=== PATIENT | male | born 1965 | race Caucasian/White ===

== ENCOUNTER 2020-09-09 13:38 | Outpatient (REF) | payer OTHER, SELFPAY ==
[2020-09-09 16:30] LABS: Hematocrit 41.5 % (42-52); Hemoglobin 14.5 g/dl (14.0-18.0); Mean Corpuscular HGB Conc 34.9 g/dl (31.0-36.0); Mean Corpuscular Hemoglobin 32.7 pg (27.0-33.0); Mean Corpuscular Volume 93.7 fL (80-98); Mean Platelet Volume 8.3 fL (9.4-12.4); Platelet Count 339 X10*3/uL (160-400); Red Blood Count 4.43 X10*6/uL (4.60-5.80); Red Cell Distribution Width 11.8 % (11.0-16.0); White Blood Count 6.5 X10*3/uL (4.8-10.8)
[2020-09-09 16:35] LABS: Color Urine STRAW; Glucose Urine UA NEG (NEG); Leukocyte Esterase Urine NEG (NEG); Nitrite Urine NEG (NEG); Urine Blood 1+ (NEG); Urine Ketones NEG (NEG); Urine Protein NEG (NEG-TRACE)
[2020-09-09 16:36] LABS: Appearance Urine CLEAR
[2020-09-09 16:47] LABS: WBC Urine 0 /HPF (0-4)
[2020-09-09 17:10] LABS: Alanine Aminotransferase 12 U/L (0-40); Albumin Level 4.7 g/dL (3.5-5.0); Alkaline Phosphatase 36 U/L (39-117); Anion Gap 15 (12-20); Aspartate Amino Transferase 17 U/L (5-37); Bilirubin Total 0.5 mg/dL (0.0-1.0); Blood Urea Nitrogen 12 mg/dL (9-16); Carbon Dioxide 28 mmol/L (22-29); Chloride 96 mmol/L (96-108); Cholesterol 180 mg/dL; Estimated Glomerular Filt Rate > 60; Glucose Fasting 85 mg/dL (60-99); HDL Cholesterol 70 mg/dL; LDL Cholesterol Calculated 102 mg/dl; Potassium 4.7 mmol/l (3.3-5.1); Sodium 134 mmol/L (135-145); Total Protein 7.4 g/dL (6.5-8.0); Triglycerides 44 mg/dL
[2020-09-09 17:30] LABS: Prostate Specific Antigen Scr 0.49 ng/mL (<0.05-4.0); Thyroid Stimulating Hormone 1.12 uIU/mL (0.32-4.0)
== END 2020-09-09 13:39 | disposition home or self-care (01) ==
LOC: HO.HMGCLDS 13:38
PROVIDERS: PCP Internal Medicine; Visit Provider Internal Medicine
DX: Z00.00 Encounter for general adult medical examination without abnormal findings (principal)
CPT/HCPCS: 36415; 80053; 80061; 81001; 84153; 84443; 85027

== ENCOUNTER → 2020-10-07 09:29 | Outpatient (BNVA) | payer OTHER, SELFPAY | PROVIDERS: PCP Internal Medicine; Visit Provider Nurse Practitioner | DX: Z76.89 Persons encountering health services in other specified circumstances (principal) ==

== ENCOUNTER → 2020-10-16 11:32 | Outpatient (BNVA) | payer OTHER, SELFPAY | PROVIDERS: PCP Internal Medicine; Visit Provider Urology | DX: R31.29 Other microscopic hematuria (principal) | CPT/HCPCS: 99202 ==

== ENCOUNTER 2020-10-28 12:56 | Outpatient (REF) | payer OTHER, SELFPAY ==
[2020-10-28 14:34] LABS: Glucose Urine UA NEG (NEG); Leukocyte Esterase Urine NEG (NEG); Nitrite Urine NEG (NEG); PH 5.5 (5.0-8.0); Urine Blood 1+ (NEG); Urine Ketones NEG (NEG); Urine Protein NEG (NEG-TRACE)
[2020-10-28 14:40] LABS: Appearance Urine CLEAR; Color Urine STRAW
[2020-10-28 14:41] LABS: Urine Cytology See Pathology rpt
[2020-10-28 15:22] LABS: RBC Urine 0-2 /HPF (0); WBC Urine 0-2 /HPF (0-4)
[2020-10-28 15:23] LABS: Squamous Epithelial Cell Urine TRACE /LPF; Uric Acid Crystals Urine TRACE /LPF
== END 2020-10-28 12:57 | disposition home or self-care (01) ==
LOC: HO.LAB 12:56
PROVIDERS: PCP Internal Medicine; Visit Provider Urology
DX: R31.29 Other microscopic hematuria (principal)
CPT/HCPCS: 81001; 88112

== ENCOUNTER 2020-11-04 13:55 | Outpatient (REF) | payer OTHER, SELFPAY ==
--- NOTE | 2020-11-04 14:02 | CT_ITS ---
EXAMINATION: CT ABDOMEN AND PELVIS WITHOUT AND WITH CONTRAST CLINICAL INFORMATION: Gross hematuria COMPARISON: Previous abdominal ultrasound July 2019 TECHNIQUE: Noncontrast CT of the abdomen and pelvis is performed followed by split bolus contrast-enhanced images using 85 mL Omnipaque 350 contrast.? Postcontrast imaging is performed during the combined nephrogram and excretion phase. Sagittal and coronal reformatted images were obtained on the technologist's workstation for both the precontrast and postcontrast phases. This CT examination was performed using dose optimization techniques as appropriate, variously including the following: *Automated exposure control *Adjustment of mA and/or kV according to patient size (this includes techniques or standardized protocols for targeted exams where dose is matched to indication/reason for exam; i.e. extremities or head) *Use of iterative reconstruction technique DLP: 368 mGy-cm FINDINGS: LUNG BASES: The visualized lung bases are unremarkable. LIVER, GALLBLADDER, AND BILIARY TREE: The liver is normal in size, shape, and attenuation. No focal hepatic lesion or biliary ductal dilatation is present. The gallbladder is unremarkable with no evidence of radiopaque gallstones, gallbladder wall thickening, or obvious pericholecystic inflammatory changes. PANCREAS: The main pancreatic duct is slightly prominent measuring 4 mm in the head of the pancreas. This is similar to previous ultrasound. The pancreas is otherwise normal appearing. No mass is seen. SPLEEN: Unremarkable. ADRENAL GLANDS: Unremarkable. KIDNEYS AND URETERS: The kidneys are normal in size, shape, and attenuation. No hydronephrosis, hydroureter, or calculi seen. There are 2 adjacent small cysts exophytic to the upper pole of the left kidney each measuring 5 mm. The collecting systems are normal. The right ureter is well-opacified with excreted contrast. The course of the right proximal ureter UPJ region is tortuous. The left ureter is not optimally opacified with excreted contrast. BLADDER: Unremarkable. GASTROINTESTINAL TRACT: There is stool throughout the colon questionable for constipation. The small and large bowel are otherwise unremarkable. The appendix is unremarkable. ABDOMINAL WALL: There is a small umbilical hernia containing fat. LYMPH NODES: Normal. VASCULAR: There is evidence of atherosclerotic disease. PELVIC VISCERA: Unremarkable. OSSEUS STRUCTURES: There is curvature of the mid lumbar spine to the right. There are degenerative changes at the hip joints. CT/CT urogram IMPRESSION: No cause of hematuria seen. The right proximal ureter at the UPJ region appears tortuous. The left ureter is not optimally opacified with excreted contrast. The bladder is normal. There are 2 small left renal cysts. There is mild dilatation of the main pancreatic duct in the head of the pancreas similar to previous ultrasound.
[2020-11-04 14:44] LABS: Blood Urea Nitrogen 16 mg/dL (9-16); Estimated Glomerular Filt Rate > 60
[2020-11-04] MEDS: iohexoL 350 MG/ML 100 ML INFUS..BTL IV (15:56)
== END 2020-11-04 13:56 | disposition home or self-care (01) ==
LOC: HO.CT 13:55
PROVIDERS: Visit Provider Urology
DX: R31.0 Gross hematuria (principal); R31.29 Other microscopic hematuria
CPT/HCPCS: 36415; 74178; 82565; 84520; Q9967

== ENCOUNTER → 2020-11-07 10:54 | Outpatient (BNVA) | payer OTHER, SELFPAY | PROVIDERS: PCP Internal Medicine; Visit Provider Urology ==

== ENCOUNTER 2020-12-05 10:12 | Outpatient (REF) | payer OTHER, SELFPAY ==
[2020-12-06 13:42] LABS: Urine Cytology See Pathology rpt
== END 2020-12-05 10:13 | disposition home or self-care (01) ==
LOC: CF 10:12
PROVIDERS: PCP Internal Medicine; Visit Provider Urology
DX: N40.1 Benign prostatic hyperplasia with lower urinary tract symptoms (principal); N13.8 Other obstructive and reflux uropathy; R39.11 Hesitancy of micturition; R31.29 Other microscopic hematuria; Z79.899 Other long term (current) drug therapy
CPT/HCPCS: 81002; 88112; 99212

== ENCOUNTER → 2021-04-07 08:55 | Outpatient (BNVA) | payer OTHER, SELFPAY | PROVIDERS: PCP Internal Medicine; Visit Provider Nurse Practitioner ==

== ENCOUNTER → 2021-10-27 16:00 | Outpatient (BNVA) | payer OTHER, SELFPAY | PROVIDERS: PCP Internal Medicine; Referring Provider Internal Medicine; Visit Provider Nurse Practitioner | DX: Z12.11 Encounter for screening for malignant neoplasm of colon (principal); K59.09 Other constipation; Z80.0 Family history of malignant neoplasm of digestive organs | CPT/HCPCS: 99212 ==

== ENCOUNTER 2022-01-06 09:48 | Day surgery (SDC) | payer OTHER, SELFPAY ==
[2022-01-01 19:58] VITALS: BMI 19.2
--- NOTE | 2022-01-05 12:07 | P.CONAN_ITS ---
Documented by User: Ana Penn NP 01/05/22 12:09 HPI - Anesthesia Eval Consult details Narrative: 56yo M for Colonoscopy Methadone daily, hx of opioid use disorder PMFSH Active Problems Active Problems: All Active Problems (Updated 01/01/22 @ 19:57 by Judy Jeter, RN) Colon cancer screening (Acute) Upper respiratory infection (Acute) BPH w urinary obs/LUTS (Acute) Urinary hesitancy due to benign prostatic hyperplasia (Acute) Family history of colon cancer (Acute) Dysplastic nevus (Acute) Weight loss (Acute) Back pain (Acute) Chronic anxiety (Acute) Microscopic hematuria (Acute) Chronic constipation (Acute) Annual physical exam (Acute) Past Medical History Medical History Annual physical exam Back pain Chronic anxiety Chronic constipation Dysplastic nevus Microscopic hematuria Opiate abuse, continuous Smoker Weight loss Family History Family History Father Rectal cancer Mother No problems noted. Surgical History Surgical History History of adenoidectomy Hx of colonoscopy Social History Social History Housing: House Alcohol intake: current Alcohol intake frequency: a few times a week Patient Tobacco Use Status: Current everyday Tobacco user Tobacco use type: Cigarette Cigarette Packs Per Day: 0.5 Cigarettes Per Day: 10.0 Years Smoked: 30 Smoked in Last 30 Days: Yes e-Cigarette/Vaping Use: Former Use Use of substances other than those prescribed or required for medical reasons: No Substance Use Type Other:: REMISSION 7 YEARS-METHADONE PROGRAM Are you DNR?: No Advance Directives: No Advance Directives Information Provided: No Advance Directives on File: No Recently lost weight without trying: No Nutrition Risks: No Nutritional Risk Current occupational status: employed Meds Allergies Allergy/AdvReac Type Severity Reaction Status Date / Time No Known Allergies Allergy Verified 10/27/21 16:30 Home Medications Medication Instructions Recorded Confirmed Last Taken Type methadone 5 mg tablet 5 mg PO DAILY 10/27/21 01/01/22 01/06/22 History bisacodyl 5 mg tablet,delayed 1 mg PO BEDTIME 01/01/22 01/01/22 Unknown History release Exam Exam Date and Time: January 05, 2022 1207 Height,Weight and Vital Signs: Height 5 ft 9 in Weight 58.967 kg Pertinent Lab Results Pertinent Lab Results: Laboratory Tests 11/04/20 14:10 BUN 16 Creatinine 0.75 Assessment and Plan Assessment Anesthesia Assessment: Chart Reviewed Documented by User: Caridad Maher MD 01/06/22 10:33 [facility] Past Medical History Medical History Annual physical exam Back pain Chronic anxiety Chronic constipation Dysplastic nevus Microscopic hematuria Opiate abuse, continuous Smoker Weight loss Functional capacity: independent ambulation Family History Family History Father Rectal cancer Mother No problems noted. Family history of problems with anesthesia: No Surgical History Surgical History History of adenoidectomy Hx of colonoscopy History of Problems with Anesthesia: No Social History Social History Housing: House Alcohol intake: current Alcohol intake frequency: a few times a week Patient Tobacco Use Status: Current everyday Tobacco user Tobacco use type: Cigarette Cigarette Packs Per Day: 0.5 Cigarettes Per Day: 10.0 Years Smoked: 30 Smoked in Last 30 Days: Yes e-Cigarette/Vaping Use: Former Use Use of substances other than those prescribed or required for medical reasons: No Substance Use Type Other:: REMISSION 7 YEARS-METHADONE PROGRAM Are you DNR?: No Advance Directives: No Advance Directives Information Provided: No Advance Directives on File: No Recently lost weight without trying: No Nutrition Risks: No Nutritional Risk Current occupational status: employed Meds Allergies Allergy/AdvReac Type Severity Reaction Status Date / Time No Known Allergies Allergy Verified 10/27/21 16:30 Home Medications Medication Instructions Recorded Confirmed Last Taken Type methadone 5 mg tablet 5 mg PO DAILY 10/27/21 01/01/22 01/06/22 History bisacodyl 5 mg tablet,delayed 1 mg PO BEDTIME 01/01/22 01/01/22 Unknown History release Exam Airway Mallampati Class: II TM Dist: >3cm Neck ROM: Full Heart: RRR Lungs: CTA Assessment and Plan Final Anesthetic Review Family History of Problems with Anesthesia: No History of Problems with Anesthesia: No NPO: Yes ASA Class: II Final Preanesthetic Review: No Changes in Pt Med Stat, Meds/Allgs Chart Reviewed, Consent Obtained/Reviewed and Anes Risks/Benef Reviewed Patient Risk: Low Procedure Risk: Low
[2022-01-06 10:01] VITALS: BP 151/83; PULSE 80; RESP 18; TEMP 36.3; O2SAT 99
--- NOTE | 2022-01-06 10:09 | MHC.SHP ---
Pre-Procedural Eval Section A Date of Service: 01/06/22 Section B Chief Complaint: Screening Details of Present Illness: FH of CRC Relevant Family History (Specify if Yes): Yes Relevant Social History: Tobacco Use Present Medications: see Short Stay Collaborative assessment Medical History: Significant History (Back pain Chronic anxiety Chronic constipation Dysplastic nevus Microscopic hematuria Opiate abuse, continuous Smoker Weight loss) History of Previous Operations: Relevant previous surgery/procedure and date(s) (History of adenoidectomy Hx of colonoscopy) Allergies: Allergies Allergy/AdvReac Type Severity Reaction Status Date / Time No Known Allergies Allergy Verified 10/27/21 16:30 Review of Systems Sugical H&P ROS: Negative: Constitution, Cardiovascular, Respiratory, Neurological, Psychiatric, Hem-Onc, Allergic/Immunologic, Gastrointestinal, Genitourinary, Musculoskeletal, Integumentary, Endocrine and Eyes/Ears/Nose/Throat Exam Surgical H&P Exam: Normal: HEENT, Normal: Heart, Normal: Lungs, Normal: Extremities, Normal: Abdomen, Normal: Skin and Normal: Neurological Plan Diagnosis/Plan: Unchanged I have reviewed the history and physical and performed a pertinent physical examination on my patient. No changes have occurred unless specified.
--- NOTE | 2022-01-06 10:10 | PM.OP ---
Brief Operative Note Date of Service: 01/06/22 Pre-op diagnosis: FH of CRC in father -rectal Post-op diagnosis: same Procedure: see op note Surgeon: Dennis Garrido MD Anesthesia: MAC Was an Transportation Department Supervisor used for this Procedure?: No Estimated blood loss (mL): 0 Condition: stable Disposition: PACU
--- NOTE | 2022-01-06 10:11 | W.PM.OPN ---
Operative Note Operative Note Date of Service: 01/06/22 Narrative: Operative Information Procedure Description: Colonoscopy COLONOSCOPY Instrument: Olympus variable stiffness pediatric scope 190L Colonoscopy Monitoring: Vital signs and clinical assessment, continuous EKG monitoring, Pulse oximetry, Carbon Dioxide monitoring and blood pressure monitoring were done throughout the procedure. Colon withdrawal time was 7 minutes. Procedure: The patient was placed in the left lateral decubitis position and pre-procedure medications were administered. After a digital rectal examination of the ano-rectum, the video colonoscope was inserted into the rectum and advanced through the colon to the cecum/TI. The colonoscope was slowly withdrawn in a retrograde panoramic fashion and the colon mucosa was carefully examined including a retroflexed view of the rectum. Findings and interventions are described below. Procedure Difficulty: easy Findings: Terminal Ileum-normal Right sided retroflexion was normal Cecum:normal Ascending Colon: few small diverticula see Transverse Colon -normal Descending Colon:normal Sigmoid Colon: few small diverticula seen, x 1 sessile polyp 6-7 mm removed with forceps Rectum: Retroflexion with small internal hemorrhoids, grade I with skin tags, 6-8 mm sessile polyp removed with forceps Anorectum - normal Colon preparation: [place] Bowel Preparation Scale Right colon; 2 Transverse colon: 2 Left colon; 2 (0 = Unprepared colon segment with mucosa not seen due to solid stool that cannot be cleared. 1 = Portion of mucosa of the colon segment seen, but other areas of the colon segment not well seen due to staining, residual stool and/or opaque liquid. 2 = Minor amount of residual staining, small fragments of stool and/or opaque liquid, but mucosa of colon segment seen well. 3 = Entire mucosa of colon segment seen well with no residual staining, small fragments of stool or opaque liquid) Impression and Post Procedure Diagnosis: .triple Plan: High fiber diet leaflet Avoid straining at stool, epsom salts and sitz bath, anusol supps or cream Repeat Colonoscopy in 5 years due to FH of CRC or earlier if clinically indicated Above findings were reviewed with the patient and relevant handouts were provided if indicated.
[2022-01-06] MEDS: Lactated Ringers 1,000 ML 100 ML IVCONT (10:29)
[2022-01-06 11:30] VITALS: BP 120/71; PULSE 69; RESP 16; TEMP 36.2; O2SAT 98
[2022-01-06 11:44] VITALS: BP 130/74; PULSE 63; RESP 18; TEMP 36.7; O2SAT 98
--- NOTE | 2022-01-06 15:12 | HO.POSTANES ---
Post Anesthesia Evaluation Post Anesthesia Evaluation Vital Signs: Vital Signs Temp Pulse Resp BP Pulse Ox 01/06/22 11:44 98.1 F 63 18 130/74 98 01/06/22 11:30 97.2 F 69 16 120/71 98 01/06/22 10:01 97.3 F 80 18 151/83 H 99 Anesthesia: Monitored Mental Status: Awake Pain Control: Satisfactory Nausea/Vomiting: None Hydration: Adequate Anesthesia-Related Issues: No Anes. Related Issues
== END 2022-01-06 12:35 | disposition home or self-care (01) ==
PROVIDERS: PCP Internal Medicine; Visit Provider Internal Medicine Gastroenterology
PROC: 0DJD8ZZ Inspection of Lower Intestinal Tract, Via Natural or Artificial Opening Endoscopic (ICD-10-PCS; CPT 45378; principal; 2022-01-06 11:10)
DX: Z12.11 Encounter for screening for malignant neoplasm of colon (principal); Z80.0 Family history of malignant neoplasm of digestive organs; D12.5 Benign neoplasm of sigmoid colon; K62.1 Rectal polyp; K57.30 Diverticulosis of large intestine without perforation or abscess without bleeding; K64.0 First degree hemorrhoids; K64.4 Residual hemorrhoidal skin tags; K59.09 Other constipation; F41.9 Anxiety disorder, unspecified; R63.4 Abnormal weight loss; Z68.1 Body mass index [BMI] 19.9 or less, adult; F11.10 Opioid abuse, uncomplicated; Z79.899 Other long term (current) drug therapy; F17.210 Nicotine dependence, cigarettes, uncomplicated
CPT/HCPCS: 45380; 88305

== ENCOUNTER 2022-02-17 08:25 | Outpatient (REF) | payer OTHER, SELFPAY ==
[2022-02-17 11:50] LABS: Hemoglobin 15.9 g/dl (14.0-18.0); Mean Corpuscular HGB Conc 33.8 g/dl (31.0-36.0); Mean Corpuscular Hemoglobin 31.3 pg (27.0-33.0); Mean Corpuscular Volume 92.5 fL (80.0-98.0); Mean Platelet Volume 8.4 fL (9.4-12.4); Platelet Count 370 X10*3/uL (160-400); Red Blood Count 5.08 X10*6/uL (4.60-5.80); Red Cell Distribution Width 12.2 % (11.0-16.0); White Blood Count 4.4 X10*3/uL (4.8-10.8)
[2022-02-17 12:07] LABS: Alanine Aminotransferase 13 U/L (0-40); Albumin Level 4.4 g/dL (3.5-5.0); Alkaline Phosphatase 40 U/L (39-117); Anion Gap 13 (12-20); Aspartate Amino Transferase 17 U/L (5-37); Bilirubin Total 0.7 mg/dL (0.0-1.0); Blood Urea Nitrogen 14 mg/dL (9-16); Calcium 9.6 mg/dL (8.4-10.2); Carbon Dioxide 27 mmol/L (22-29); Chloride 103 mmol/L (96-108); Cholesterol 180 mg/dL; Estimated Glomerular Filt Rate > 60; Glucose Fasting 92 mg/dL (60-99); HDL Cholesterol 65 mg/dL; LDL Cholesterol Calculated 107 mg/dl; Potassium 4.6 mmol/L (3.3-5.1); Sodium 138 mmol/L (135-145); Total Protein 7.3 g/dL (6.5-8.0); Triglycerides 41 mg/dL
[2022-02-17 12:14] LABS: Prostate Specific Antigen Scr 0.85 ng/mL (<0.05-4.0)
[2022-02-17 12:21] LABS: Appearance Urine CLEAR; Color Urine YELLOW; Glucose Urine UA NEG (NEG); Leukocyte Esterase Urine NEG (NEG); Nitrite Urine NEG (NEG); Urine Blood TRACE (NEG); Urine Ketones NEG (NEG); Urine Protein NEG (NEG-TRACE)
[2022-02-17 13:13] LABS: RBC Urine 0-2 /HPF (0); WBC Urine 0 /HPF (0-4)
== END 2022-02-17 08:26 | disposition home or self-care (01) ==
LOC: HO.HMGCLDS 08:25
PROVIDERS: Visit Provider Internal Medicine
DX: Z00.00 Encounter for general adult medical examination without abnormal findings (principal); Z12.5 Encounter for screening for malignant neoplasm of prostate
CPT/HCPCS: 36415; 80053; 80061; 81001; 84153; 85027

== ENCOUNTER 2023-06-10 10:35 | Outpatient (AMB) | payer OTHER, SELFPAY ==
--- NOTE | 2023-06-10 10:47 | MHC.PC.OV ---
Vital Signs 06/10/23 10:48 Height 5 ft 9 in Weight 144 lb BMI 21.3 BP 125/80 Blood Pressure Location Lt brachial Position Sitting Pulse 77 Pulse Source Pulse Oximeter Pulse Oximetry (%) 96 Oxygen Delivery Method Room Air Intake Visit Reasons: Medication Follow Up Intake Note: Pt is here today for PE. Allergies No Known Allergies Allergy (Verified 06/10/23 10:51) Medication List - Last Reconciled 06/10/23 by Jazmin Chavez MD finasteride 1 mg PO DAILY minoxidil 1.25 mg PO DAILY trazodone 100 mg PO BEDTIME Tobacco use date assessed: 06/10/23 Dental Screening Dental Screen Date: 06/10/23 Did you have a dental visit in the last 12 months?: Yes Did you have a dental problem in the last 6 months where you did not have access to dental care?: No Was dental information given to patient?: Patient has dentist HPI HPI Comments History of Present Illness Details Pt presents for PE [facility] Medical History Annual physical exam Back pain Chronic anxiety Chronic constipation Dysplastic nevus Microscopic hematuria Opiate abuse, continuous Smoker Weight loss Surgical History History of adenoidectomy Hx of colonoscopy Family History Father Rectal cancer Mother No problems noted. Social History Housing: House Alcohol intake: current Alcohol intake frequency: a few times a week Patient Tobacco Use Status: Current everyday Tobacco user Tobacco use type: Cigarette Cigarette Packs Per Day: 0.5 Cigarettes Per Day: 8 Years Smoked: 30 e-Cigarette/Vaping Use: Former Use Current occupational status: employed Cognitive needs: No Hearing needs: No Vision needs: Yes Questionnaire PHQ-9 Over the last 2 weeks, how often have you been bothered by any of the following problems? 1. Little interest or pleasure in doing things: not at all 2. Feeling down, depressed, or hopeless: not at all 3. Trouble falling or staying asleep, or sleeping too much: not at all 4. Feeling tired or having little energy: not at all 5. Poor appetite or overeating: not at all 6. Feeling bad about yourself - or that you are a failure or have let yourself or your family down: not at all 7. Trouble concentrating on things, such as reading the newspaper or watching television: not at all 8. Moving or speaking so slowly that other people could have noticed. Or the opposite - being so fidgety or restless that you have been moving around a lot more than usual: not at all 9. Thoughts that you would be better off or of hurting yourself in some way: not at all Total score: 0 Depression Screening Interpretation: Negative Source: Developed by Drs. Volodymyr Meléndez, Pamella Weiss, Demario Kraft and colleagues, with an educational manuel from [employer] website. Thrive Questionnaire Date Thrive assessed: 06/10/23 I am a: Patient What is your living situation today?: I have a steady place to live Within the past 12 months, did the food you bought not last and you didn't have the money to get more?: Never true Within the past 12 months, did you worry whether your food would run out before you got money to buy more?: Never true Do you have trouble paying for medicines?: No Do you have trouble getting transportation to medical appointments?: No Do you have trouble paying your heating and electricity bill?: No Do you have trouble taking care of your child, family member or friend?: No Do you have trouble with day-to-day activities such as bathing, preparing meals, shopping, managing finances, etc.?: No Are you currently unemployed and looking for a job?: No Are you interested in more education?: No Please select the resources that you would like help with: None Currently or been in a relationship where the following occur: no concerns reported AUDIT C Alcohol Use Questionnaire (AUDIT-C) 1. How often do you have a drink containing alcohol?: Monthly or less 2. How many drinks containing alcohol do you have on a typical day when you are drinking?: 1 or 2 3. How often do you have six or more drinks on one occasion?: Never Total Score: 1 YOLETTE-7 AMB Questionnaire YOLETTE-7 Date YOLETTE - 7 assessed: 06/10/23 Feeling nervous, anxious, or on edge: 0 = Not at all Not being able to stop or control worryin = Not at all Worrying too much about different things: 0 = Not at all Trouble relaxin = Not at all Being so restless that it is hard to sit still: 0 = Not at all Becoming easily annoyed or irritable: 0 = Not at all Feeling afraid as if something awful might happen: 0 = Not at all Total YOLETTE-7 score (0-4 normal; 5-9 mild; 10-14 moderate; 15-21 severe): 0 Source: Developed by Drs. Volodymyr Meléndez, Pamella Weiss, Demario Kraft and colleagues, with an educational manuel from [employer] website. Review of Systems Const All systems reviewed & are unremarkable except as noted in HPI and below Reports no additional complaints Eyes Reports no additional complaints ENT Reports no additional complaints Card Reports no additional complaints Resp Reports no additional complaints GI Reports no additional complaints Reports no additional complaints Physical exam (Primary Care) Vital Signs: Last Vital Signs Pulse 77 06/10/23 10:48 BP 138/94 H 06/10/23 10:48 Pulse Ox 96 06/10/23 10:48 Oxygen Delivery Method Room Air 06/10/23 10:48 BMI result Body Mass Index 21.3 Tobacco/Smoking Status: Tobacco use Status Tobacco use date assessed 06/10/23 06/10/23 10:56 Patient Tobacco Use Status Current everyday Tobacco 06/10/23 10:50 Tobacco use type Cigarette 06/10/23 10:50 e-Cigarette/Vaping Use Former Use 06/10/23 10:50 PHQ-9: PHQ-9 Score PHQ-9: Total score 0 06/10/23 10:56 Depression Screening Interpretation: Negative Thrive Assessment: Date of Thrive Assessment Date Thrive assessed 06/10/23 06/10/23 10:56 Currently or been in a relationship where the following occur: no concerns reported Const General: no acute distress HENMT Head: Yes normal to inspection Ears: hearing grossly normal bilaterally Throat: Yes posterior oropharynx normal Eyes General: appearance normal, both eyes and all related structures Neck Neck: Yes no lymphadenopathy and Yes supple Resp Effort & Inspection: normal respiratory effort Auscultation: clear to auscultation bilaterally Cardio Rhythm: regular rhythm Heart sounds: S1 normal heart sound present and S2 normal heart sound present GI Other: Reducible umbilical hernia Inspection: Yes normal to inspection Palpation (GI): Soft to palpation Percussion: Yes normal to percussion Auscultation: normal bowel sounds Assessment and Plan Assessment & Plan (1) Umbilical hernia: Code(s): K42.9 - Umbilical hernia without obstruction or gangrene Plan: Referred to general surgery (2) Colon cancer screening: Comment: colonoscopy 2021 polyps, recheck in 5 yrs Code(s): Z12.11 - Encounter for screening for malignant neoplasm of colon (3) Heart murmur: Code(s): R01.1 - Cardiac murmur, unspecified Plan: Obtain echocardiogram (4) Annual physical exam: Code(s): Z00.00 - Encounter for general adult medical examination without abnormal findings Plan: Well-balanced diet and regular exercise discussed with the patient , he will have a fasting blood work today (5) Smoker: Comment: 1 ppd x 25 yrs Code(s): F17.200 - Nicotine dependence, unspecified, uncomplicated Plan: Tobacco quitting discussed with the patient he will be referred for lung cancer screening program Orders: Orders Comprehensive [place]. Panel Fast Today Z12.11 - Encounter for screening for malignant neoplasm of colon Complete Blood Count Auto Diff Today Z12.11 - Encounter for screening for malignant neoplasm of colon Lipid Panel Today Z12.11 - Encounter for screening for malignant neoplasm of colon PSA,Total (Free>4and<10) Today Z12.11 - Encounter for screening for malignant neoplasm of colon CA echo transthoracic complete Today R01.1 - Cardiac murmur, unspecified, Z00.00 - Encounter for general adult medical examination without abnormal findings UA w Microscopic Today Z00.00 - Encounter for general adult medical examination without abnormal findings Referrals General Surgery Referral K42.9 - Umbilical hernia without obstruction or gangrene, Z12.11 - Encounter for screening for malignant neoplasm of colon Thoracic Surgery Referral F17.200 - Nicotine dependence, unspecified, uncomplicated Medications: Refilled trazodone 100 mg PO BEDTIME 90 tabs 3RF Coding Level of Care Code Est Pt Prev Care 40-64y(61171) Diagnoses Umbilical hernia K42.9 Colon cancer screening Z12.11 Heart murmur R01.1 Annual physical exam Z00.00 Smoker F17.200
[2023-06-10 10:48] VITALS: BP 125/80; PULSE 77; O2SAT 96; BMI 21.3
== END 2023-06-10 11:41 | disposition home or self-care (01) ==
PROVIDERS: PCP Internal Medicine; Visit Provider Internal Medicine
DX: Z00.00 Encounter for general adult medical examination without abnormal findings (principal); K42.9 Umbilical hernia without obstruction or gangrene; F17.210 Nicotine dependence, cigarettes, uncomplicated; Z12.11 Encounter for screening for malignant neoplasm of colon; R01.1 Cardiac murmur, unspecified
CPT/HCPCS: 99396

== ENCOUNTER 2023-06-10 11:35 | Outpatient (REF) | payer OTHER, SELFPAY ==
[2023-06-10 13:18] LABS: MANUAL DIFF FLAG NO
[2023-06-10 13:50] LABS: Basophils Percent Auto 0.7 % (0-2); Eosinophils Absolute Auto 0.1 X10*3/uL (0.0-0.4); Eosinophils Percent Auto 1.5 % (0-4); Hemoglobin 15.4 g/dl (14.0-18.0); Imm Gran Abs Auto 0.01 X10*3/uL (0.00-0.03); Imm Gran Pct Auto 0.2 % (0.0-0.4); Lymphocytes Absolute Auto 1.6 X10*3/uL (1.2-4.9); Lymphocytes Percent Auto 28.9 % (20-40); Mean Corpuscular HGB Conc 34.2 g/dl (31.0-36.0); Mean Corpuscular Hemoglobin 31.4 pg (27.0-33.0); Mean Corpuscular Volume 91.8 fL (80.0-98.0); Mean Platelet Volume 8.6 fL (9.4-12.4); Monocytes Absolute Auto 0.4 X10*3/uL (0.1-1.2); Neutrophils Absolute Auto 3.3 x10*3/uL (2.0-8.3); Neutrophils Percent Auto 60.7 % (45-73); Platelet Count 357 X10*3/uL (160-400); Red Cell Distribution Width 12.6 % (11.0-16.0); White Blood Count 5.4 X10*3/uL (4.8-10.8)
[2023-06-10 14:04] LABS: Appearance Urine Clear; Color Urine Yellow; Glucose Urine UA Negative (Negative); Leukocyte Esterase Urine Negative (Negative); Nitrite Urine Negative (Negative); Specific Gravity - Urine 1.025 (1.005-1.025); Urine Blood Negative (Negative); Urine Ketones Negative (Negative); Urine Protein Negative (Neg-Trace)
[2023-06-10 14:13] LABS: Alanine Aminotransferase 14 U/L (0-40); Albumin Level 4.4 g/dL (3.5-5.0); Alkaline Phosphatase 41 U/L (39-117); Anion Gap 10 (12-20); Aspartate Amino Transferase 14 U/L (5-37); Bilirubin Total 0.7 mg/dL (0.0-1.0); Blood Urea Nitrogen 17 mg/dL (9-16); Calcium 9.4 mg/dL (8.4-10.2); Carbon Dioxide 27 mmol/L (22-29); Chloride 107 mmol/L (96-108); Cholesterol 168 mg/dL (<200); Estimated Glomerular Filt Rate > 60; Glucose Fasting 96 mg/dL (60-99); HDL Cholesterol 58 mg/dL (>40); LDL Cholesterol Calculated 100 mg/dL (<100); Potassium 4.1 mmol/L (3.3-5.1); Sodium 140 mmol/L (135-145); Total Protein 7.3 g/dL (6.5-8.0); Triglycerides 54 mg/dL (<150)
[2023-06-10 14:26] LABS: Bacteria Urine None Seen (None Seen); Hyaline Casts Urine 0-2 /LPF (0-2); Squamous Epithelial Cell Urine 0-2 /HPF (0-2); WBC Urine 0-5 /HPF (0-5)
[2023-06-10 17:10] LABS: PSA,Total (Free>4and<10) 0.49 ng/mL (0.00-4.00)
== END 2023-06-10 11:36 | disposition home or self-care (01) ==
LOC: HO.HMGCLDS 11:35
PROVIDERS: PCP Internal Medicine; Visit Provider Internal Medicine
DX: Z00.00 Encounter for general adult medical examination without abnormal findings (principal); Z12.11 Encounter for screening for malignant neoplasm of colon; R01.1 Cardiac murmur, unspecified
CPT/HCPCS: 36415; 80053; 80061; 81001; 84153; 85025

== ENCOUNTER 2023-06-14 10:04 | Outpatient (AMB) | payer OTHER, SELFPAY ==
--- NOTE | 2023-06-14 10:06 | A.OFFVIS_ITS ---
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 He is currently smoking about a half a pack a day and notes that he has had an umbilical hernia present for at least 10 years. He denies any prior attempts at repair but does note that it is symptomatic with exertion and he is interested in discussing repair. He denies prior intra-abdominal operations and notes that his weight is currently stable. He denies signs or symptoms of incarceration, strangulation, obstruction, urinary issues or changing bowel habits. He does note that he is having as screening CT regarding his history of smoking. He does express an interest in nicotine cessation given the long-term affects on his health and notes that he typically can quit smoking for at least a week at a time. [facility] Medical History (Updated 06/14/23 @ 10:12 by Denver Baldwin MD) Annual physical exam Back pain Chronic anxiety Chronic constipation Dysplastic nevus Microscopic hematuria Opiate abuse, continuous Smoker Weight loss Surgical History History of adenoidectomy Hx of colonoscopy Family History Father Rectal cancer Mother No problems noted. Social History Housing: House Alcohol intake: current Alcohol intake frequency: a few times a week Patient Tobacco Use Status: Current everyday Tobacco user Tobacco use type: Cigarette Cigarette Packs Per Day: 0.5 Cigarettes Per Day: 8 Years Smoked: 30 e-Cigarette/Vaping Use: Former Use Current occupational status: employed Cognitive needs: No Hearing needs: No Vision needs: Yes Review of Systems Const All systems reviewed & are unremarkable except as noted in HPI and below Reports as per HPI Physical Exam Vital Signs: Last Vital Signs Pulse 104 H 06/14/23 10:10 BP 140/87 H 06/14/23 10:10 Pulse Ox 99 06/14/23 10:10 The patient is non-toxic & in good spirits NC/AT, PERRLA, EOMI Mood, affect & judgment all appear appropriate Sclera anicteric conjunctiva pink and moist Oropharynx is clear with no aphthous ulcers, Mallampati class 4, mucous membranes moist Neck is supple with no masses, adenopathy or bruits Heart is regular, normal S1-S2 no rubs or murmurs Lungs are clear and equal anteriorly with no audible wheezing, rubs or dullness to percussion Abdomen is lean with a tender but reducible umbilical hernia with no trophic skin changes. Palpable fascial defect is approximately 2 cm. No HSM, rebound, rigidity, guarding, masses or bruits are present. Rectal exam is deferred Skin has good turgor and is free of rashes Extremities free of cyanosis clubbing edema Results Reviewed Results Reviewed: 06/10/23 Hb 15.4, Plts 357, wbc 5.4 Assessment & Plan Assessment & Plan (1) Smoker: Comment: 1 ppd x 25 yrs Code(s): F17.200 - Nicotine dependence, unspecified, uncomplicated (2) Umbilical hernia: Code(s): K42.9 - Umbilical hernia without obstruction or gangrene (3) Opiate abuse, continuous: Comment: never IVDA, clean for 7 years, in Methadone program Code(s): F11.10 - Opioid abuse, uncomplicated Plan The patient reports that he is having symptoms from his hernia and it is reasonable to consider repair. Given his lean habitus, open repair with primary closure or possible mesh repair was discussed. The importance of nicotine cessation to minimize infectious and pain complications was also discussed. Patient would like to return in a month to be re-evaluated. Signs and symptoms of incarceration, strangulation and obstruction were reviewed. Patient will contact me with any questions and if he is having more symptoms. Activity res trictions postoperatively were also reviewed and apparently understood. The importance of discussion with his therapist since perioperative opiates may be required which could cause cravings and increase his risk of relapse was discussed. The option of a laparoscopic repair, 2nd opinion and continued observation given the chronicity of this was also discussed. The risk of mesh complications was also reviewed. Patient seemed to have his questions answered and would like to return in 1 month. I have ordered a pre-albumin and nicotine urine test as well as urinary opiates. The patient is congratulated on his reporting that he is currently methadone and drug-free and desires to be nicotine free at this time. Orders: Orders Prealbumin Today F11.10 - Opioid abuse, uncomplicated, F17.200 - Nicotine dependence, unspecified, uncomplicated, K42.9 - Umbilical hernia without obstruction or gangrene Nicotine and Metabolite Ur, Qt Today F11.10 - Opioid abuse, uncomplicated, F17.200 - Nicotine dependence, unspecified, uncomplicated, K42.9 - Umbilical hernia without obstruction or gangrene Drug Screen Urine Today F11.10 - Opioid abuse, uncomplicated, F17.200 - Nicotine dependence, unspecified, uncomplicated, K42.9 - Umbilical hernia without obstruction or gangrene Coding Level of Care Code New Pt Level 4 (66691) Diagnoses Smoker F17.200 Umbilical hernia K42.9 Opiate abuse, continuous F11.10
[2023-06-14 10:10] VITALS: BP 140/87; PULSE 104; O2SAT 99; BMI 21.9
== END 2023-06-14 10:40 | disposition home or self-care (01) ==
PROVIDERS: PCP Internal Medicine; Visit Provider Surgery
DX: F17.200 Nicotine dependence, unspecified, uncomplicated (principal); K42.9 Umbilical hernia without obstruction or gangrene; F11.10 Opioid abuse, uncomplicated
CPT/HCPCS: 99204

== ENCOUNTER → 2023-06-14 10:04 | Outpatient (BNVA) | payer OTHER, SELFPAY | PROVIDERS: PCP Internal Medicine; Visit Provider Surgery | DX: K42.9 Umbilical hernia without obstruction or gangrene (principal); F11.20 Opioid dependence, uncomplicated; F17.210 Nicotine dependence, cigarettes, uncomplicated | CPT/HCPCS: 99202 ==

== ENCOUNTER 2023-07-12 11:47 | Outpatient (REF) | payer OTHER, SELFPAY ==
[2023-07-12 14:14] LABS: Amphetamine Screen Urine Not Detected (Not Detect); Barbiturates, Urine Not Detected (Not Detect); Benzodiazepines Screen Urine Not Detected (Not Detect); Cannabinoid Screen Urine Not Detected (Not Detect); Cocaine Screen Urine Not Detected (Not Detect); Fentanyl, urine Not Detected (Not Detect); Opiate Screen Urine Not Detected (Not Detect); Phencyclidine Screen Urine Not Detected (Not Detect)
[2023-07-18 00:23] LABS: Cotinine, U 80 ng/mL; Nicotine, U <2 ng/mL
== END 2023-07-12 11:48 | disposition home or self-care (01) ==
LOC: HO.LAB 11:47
PROVIDERS: PCP Internal Medicine; Visit Provider Surgery
DX: K42.9 Umbilical hernia without obstruction or gangrene (principal); R01.1 Cardiac murmur, unspecified; F11.10 Opioid abuse, uncomplicated; F17.200 Nicotine dependence, unspecified, uncomplicated
CPT/HCPCS: 80307; 80323; 84134; 99212

== ENCOUNTER 2023-07-12 12:06 | Outpatient (AMB) | payer OTHER, SELFPAY ==
--- NOTE | 2023-07-12 12:54 | A.OFFVIS_ITS ---
Intake Vital Signs 07/12/23 12:58 Height 5 ft 7 in Weight 146 lb 13.246 oz BMI 23.0 BP 141/78 H Blood Pressure Location Rt brachial Position Sitting Pulse 70 Pulse Source Pulse Oximeter Temp 97.9 F Temp Source Tympanic Pulse Oximetry (%) 99 Oxygen Delivery Method Room Air Intake Visit Reasons: umbilical hernia Allergies No Known Allergies Allergy (Verified 07/12/23 12:59) HPI HPI Comments History of Present Illness Details The patient is a 57-year-old gentleman who is in recovery from opiate use disorder and has completed methadone program. He is currently smoking about a half a pack a day and notes that he has had an umbilical hernia present for at least 10 years. He denies any prior attempts at repair but does note that it is symptomatic with exertion and he is interested in discussing repair. He denies prior intra-abdominal operations and notes that his weight is currently stable. He denies signs or symptoms of incarceration, strangulation, obstruction, urinary issues or changing bowel habits. He does note that he is having as screening CT regarding his history of smoking. He does express an interest in nicotine cessation given the long-term affects on his health and notes that he typically can quit smoking for at least a week at a time. He is currently tapering off cigarettes and would like to plan unopened umbilical hernia repair with mesh in October,. He has a screening chest CT and echocardiogram outstanding at this point due to his age and asymptomatic screening. The patient notes that he went for labs today and has been nicotine free for the past 4 days. [facility] TO [facility] Medical History Smoker Dysplastic nevus Weight loss Back pain Chronic anxiety Microscopic hematuria Chronic constipation Annual physical exam Opiate abuse, continuous Surgical History Hx of colonoscopy History of adenoidectomy Family History Father Rectal cancer Mother No problems noted. Social History Housing: House Alcohol intake: current Alcohol intake frequency: a few times a week Patient Tobacco Use Status: Current everyday Tobacco user Tobacco use type: Cigarette Cigarette Packs Per Day: 0.5 Cigarettes Per Day: 8 Years Smoked: 30 e-Cigarette/Vaping Use: Former Use Current occupational status: employed Cognitive needs: No Hearing needs: No Vision needs: Yes Physical Exam On exam, the patient is nontoxic He is lean and in no respiratory distress His umbilical hernia is unchanged and is reducible with no trophic skin changes and no erythema Results Reviewed Results Reviewed: labs Pending Assessment & Plan Assessment & Plan (1) Umbilical hernia: Code(s): K42.9 - Umbilical hernia without obstruction or gangrene (2) Heart murmur: Code(s): R01.1 - Cardiac murmur, unspecified (3) Smoker: Comment: 1 ppd x 25 yrs Code(s): F17.200 - Nicotine dependence, unspecified, uncomplicated (4) Opiate abuse, continuous: Comment: never IVDA, clean for 7 years, in Methadone program Code(s): F11.10 - Opioid abuse, uncomplicated Plan The patient reports that he is having symptoms from his hernia and it is reasonable to consider repair. Given his lean habitus, open repair with primary closure or possible mesh repair was discussed. The importance of nicotine cessation to minimize infectious and pain complications was also discussed. Since the patient is looking to schedule surgery after the new year in October,, we will have a video appointment in mid September to review his health and look to schedule a date that accommodates his needs. Signs and symptoms of incarceration, strangulation and obstruction were reviewed. Patient will contact me with any questions and if he is having more symptoms. Activity restrictions postoperatively were also reviewed and apparently understood. The importance of discussion with his therapist since perioperative opiates may be required which could cause cravings and increase his risk of relapse was discussed. The option of a laparoscopic repair, 2nd opinion and continued observation given the chronicity of this was also discussed. The risk of mesh complications was also reviewed. Patient seemed to have his questions answered and would like to return in 1 month. I have ordered a pre-albumin and nicotine urine test as well as urinary opiates. The patient is congratulated on his reporting that he is currently methadone and drug-free and desires to be nicotine free at this time. The patient would like to proceed with an open umbilical hernia repair, possibly with mesh and we discussed the inherent risks of bleeding, infection, seroma, mesh complications that could require reoperation, activity restrictions. His questions seemed to be satisfactorily answered. He notes healthy recovery and will discuss the possible need for short term narcotics with his support system since we discussed that relapse/cravings can jeopardize his sobriety. Patient's questions seemed to be answered & the plan seemed to be understood. Coding Level of Care Code Est Pt Level 4 (14579) Diagnoses Umbilical hernia K42.9 Heart murmur R01.1 Smoker F17.200 Opiate abuse, continuous F11.10
[2023-07-12 12:58] VITALS: BP 141/78; PULSE 70; TEMP 36.6; O2SAT 99; BMI 23.0
== END 2023-07-12 13:29 | disposition home or self-care (01) ==
PROVIDERS: PCP Internal Medicine; Visit Provider Surgery
DX: K42.9 Umbilical hernia without obstruction or gangrene (principal); R01.1 Cardiac murmur, unspecified; F17.200 Nicotine dependence, unspecified, uncomplicated; F11.10 Opioid abuse, uncomplicated
CPT/HCPCS: 99214

== ENCOUNTER → 2023-07-13 09:49 | Outpatient (REF) | payer OTHER, SELFPAY ==
--- NOTE | 2023-07-13 09:51 | CA_ITS ---
Transthoracic Echocardiogram Patient (Last, First, Middle): Trent Jeffers J Gender: Male Date of : 1965 Age: 58 Procedure Date: 07/13/2023 Procedure Type: Transthoracic Echocardiogram Location: OP Height: 172.72 cm Weight: 61.24 kg BSA: 1.73 m2 Heart Rate: 75 bpm BP: 125 / 85 mmHg Ball Worker: CHRISTINE Talavera MD: Jazmin Chavez MD Inverted Block Operator: Win Aleman MD Symptoms: R01.1 - Cardiac murmur, unspecified Study Quality: Fair ECG Rhythm: Sinus Conclusions: - 1. Normal LV systolic and diastolic function with LVEF of 55 60% 2. Mild fibrocalcific aortic valve changes noted with normal cardiac valvular Dopplers 3. Upper limits of normal ascending aortic size 4. Normal RV systolic pressure 5. No gross pericardial effusion Findings Left Ventricle Normal left ventricular size, thickness, and systolic function. The visually estimated ejection fraction is between 55-60%. Diastolic function is normal for age. Right Ventricle Normal right ventricular cavity size and systolic function. Atria Both atria are normal in size. There is lipomatous hypertrophy of the interatrial septum. There is no evidence of interatrial shunt. Aortic Valve There is mild calcification of the aortic valve. There is no aortic valve stenosis. There is no aortic valve regurgitation. Mitral Valve Normal mitral valve structure and function. There is trace mitral valve regurgitation. There is no mitral valve stenosis. Pulmonic Valve The pulmonic valve was not well visualized. Tricuspid Valve Normal tricuspid valve structure. There is trace tricuspid valve regurgitation. The right ventricular systolic pressure is normal. The right ventricular systolic pressure is 34 mmHg. Normal right atrial pressure. There is no evidence of pulmonary hypertension. Great Vessels The pulmonary artery was not well visualized. Venous The inferior vena cava is normal in size and collapses greater than 50% with inspiration. Pericardium/Pleural There is no evidence of pericardial effusion. Prior Study Comparison No prior study available for comparison. Measurements 2D Linear Measurements IVSd: 0.80 0.6-0.9/0.6-1.0 cm LVIDd: 5.38 3.9-5.3/4.2-5.9 cm LVIDd Index: 3.11 2.4-3.2/2.2-3.1 cm/m2 LVIDs: 3.41 2.0-3.6 cm LVPWd: 0.84 0.7-1.1 cm LA Diam: 2.80 2.7-3.8/3.0-4.0 cm LAIDs Index: 1.62 1.5-2.3 cm/m2 LV Mass: 198.30 67-162/88-224 g LV Mass Index: 114.62 43-95/49-115 g/m2 LVOT Diam: 2.10 3.0+(-)1.3 cm 2D Systolic Function EF 4C: 53.40 >55% EF 2C: 59.30 >55% EF BiP: 57.00 >55% Mitral Valve MV Pk E: 0.52 MV PK A: 0.49 MV Decel Time: 165.00 E/A: 1.10 E'Lateral: 9.90 E'Medial: 7.29 E/E' Med: 7.10 E/E' Lat: 5.20 PHT: 48.00 MVA PHT: 4.58 Decel Person: 3.14 Aortic Valve AoV Pk Edilberto: 1.38 AoV Mn Edilberto: 0.98 AoV VTI: 0.25 AoV Pk Grad: 8.00 Aov Mn Grad: 4.00 LIAM Cont.VTI: 2.72 LVOT LVOT Pk Edilberto: 0.97 LVOT Mn Edilberto: 0.68 LVOT VTI: 0.20 LVOT Pk Grad: 4.00 LVOT Mn Grad: 2.00 LVOT Diam: 2.10 LVOT Area: 3.46 Diastolic Function MV Pk E: 0.52 MV Pk A: 0.49 E/A: 1.10 E'Medial: 7.29 E/E' Med: 7.10 E' Laterial: 9.90 E/E' Lat: 5.20 Right Ventricle TAPSE (mm): 24.40 TVS' Edilberto: 11.30 Tricuspid Valve TR Pk Edilberto: 2.19 TR Pk Grad: 19.00 RA Press: 15.00 RVSP: 34.00 Great Vessels Aorta Sinus of Valsalva: 3.90 2.0-3.5 cm Ao Asc: 3.50 2.1-3.4 cm Pulmonary Valve PV Pk Edilberto: 1.07 Peak PV Grad: 5.00 Updated in Other Vendor System with Status of Final Win Aleman MD electronically signed on 07/13/2023 3:18:08 PM with status of Final
== END ==
LOC: HO.CARD 09:49
PROVIDERS: PCP Internal Medicine; Visit Provider Internal Medicine
DX: R01.1 Cardiac murmur, unspecified (principal)
CPT/HCPCS: 93306

== ENCOUNTER → 2023-07-13 09:51 | Outpatient (BNV) | payer OTHER, SELFPAY | PROVIDERS: PCP Internal Medicine; Visit Provider Internal Medicine Cardiovascular Disease | DX: I35.8 Other nonrheumatic aortic valve disorders (principal); R01.1 Cardiac murmur, unspecified | CPT/HCPCS: 93306 ==

== ENCOUNTER 2023-08-13 14:52 | Outpatient (AMB) | payer OTHER, SELFPAY ==
--- NOTE | 2023-08-13 07:56 | MHC.OFFVIS ---
Intake Intake Visit Reasons: LDCT SD Allergies No Known Allergies Allergy (Verified 07/12/23 12:59) HPI LDCT SD HPI Details Initial visit for this 58yo smoker with a 30PYH. Patient has been smoking since age 20 for 38 years at 1/2-1ppd. Currently down to 1/2ppd over last few years. . Denies marijuana use. Denies second hand smoke exposure. Denies exposure to chemicals or substances like asbestos. . Denies known family history of lung cancer. Denies personal history of cancers. Denies chest CT in last year. . Denies recent travel outside the [place]. Denies recent respiratory illness or recent hospitalization for respiratory issues. Denies testing positive for COVID. Admits receiving COVID Vaccine. x 6. . Denies fever, chills, new/worsening cough, hemoptysis, hoarseness or dysphagia. Denies significant chest pain, significant dyspnea or unintentional weight loss. Patient Lung Cancer Screening Questionnaire reviewed with patient by provider. . Shared Decision Making Completed. Patient meets criteria. Discussed in detail with patient, the risk vs benefit of LDCT screening. Patient consents to proceed with scan. Discussed smoking cessation. [facility] Medical History (Updated 08/13/23 @ 15:04 by Radha Wells PA-C) Opiate abuse, continuous History of substance abuse Microscopic hematuria Tubular adenoma of colon (~2021) Chronic constipation Nicotine dependence, cigarettes, uncomplicated Chronic anxiety Surgical History (Updated 07/15/23 @ 14:37 by Radha Wells PA-C) History of colonoscopy History of adenoidectomy Family History Father Rectal cancer Mother No problems noted. Social History (Updated 08/13/23 @ 15:04 by Radha Wells PA-C) Housing: House Alcohol intake: current Alcohol intake frequency: a few times a week Patient Tobacco Use Status: Current everyday Tobacco user Tobacco use type: Cigarette Cigarette Packs Per Day: 0.5 Cigarettes Per Day: 8 Years Smoked: onset 20yo, 1/2-1ppd x 38yrs, now 1/2ppd - 30pyh e-Cigarette/Vaping Use: Former Use Current occupational status: employed Cognitive needs: No Hearing needs: No Vision needs: Yes Assessment & Plan Assessment & Plan (1) Nicotine dependence, cigarettes, uncomplicated: Comment: (current smoker - onset 20yo, 1/2-1ppd x 38yrs, now 1/2ppd - 30pyh) Code(s): F17.210 - Nicotine dependence, cigarettes, uncomplicated Plan: - SDM visit completed today in office. - Patient meets criteria for LDCT for lung cancer screening purposes and is asymptomatic. - Smoking cessation counseling offered. Patients can always call [phone]. - Will arrange for a LDCT scan of the chest for screening purposes at [facility]. - Risks, benefits, and alternatives were discussed in detail and the patient agrees to proceed. - Risks discussed include but are not limited to: radiation exposure, anxiety during testing and while awaiting results, false negatives, false positives and possibility of additional intervention such as further imaging or surgical procedures for benign disease. - Benefits are obviously detection of lung cancer at an early stage which can lead to improved outcomes. - Discussed the importance of screening program compliance with adherence to yearly LDCT scan as scheduled - or sooner interval scans for personalized screening regimen. - Discussed follow up plan. Our office will send a letter discussing results and if needed set up phone call and office visit based on CT findings. - Patient educated on results categorization and the management decisions for suspicious findings potentially found on the screening LDCT scan. Any patient with a Lung RADS score of 3 or 4 will be reviewed by a multidisciplinary team at [facility] to form a plan of action in regards to scan findings. - If further work up is warranted for a suspicious lung finding this will be followed by the Lung Cancer Screening program in conjunction with the Thoracic Surgery Department at [facility]. - A copy of the office note and LDCT will be sent to the patient's PCP - as well as documentation on any associated further plans of care. - Incidental findings on LDCT are the PCP's responsibility. These findings are indicated with an S finding on the LDCT Assessment. A note discussing the findings will be sent to the PCP who is then responsible for further management. - All questions answered.? Coding Level of Care Code Lung Cancer Screening [id number] Diagnoses Nicotine dependence, cigarettes, uncomplicated F17.210
== END 2023-08-13 15:33 | disposition home or self-care (01) ==
PROVIDERS: PCP Internal Medicine; Visit Provider Physician Assistant Medical
DX: F17.210 Nicotine dependence, cigarettes, uncomplicated (principal)
CPT/HCPCS: G0296

== ENCOUNTER 2023-08-13 15:05 | Outpatient (REF) | payer OTHER, SELFPAY ==
--- NOTE | ~2023-08-13 | CT_ITS ---
EXAMINATION: CT CHEST SCREENING CLINICAL INFORMATION: Former smoker. Quit 3 years ago. 39 pack year history. COMPARISON: Previous chest x-ray June 2019 TECHNIQUE: Multidetector volumetric CT imaging of the chest is performed without contrast using low dose technique. Additional 2D coronal and sagittal reformatted images and axial 3D maximum intensity projection (MIP) images are generated on the CT workstation. This CT examination was performed using dose optimization techniques as appropriate, variously including the following: *Automated exposure control *Adjustment of mA and/or kV according to patient size (this includes techniques or standardized protocols for targeted exams where dose is matched to indication/reason for exam; i.e. extremities or head) *Use of iterative reconstruction technique DLP: 43 mGy-cm FINDINGS: LUNGS: Mild paraseptal emphysema. The lungs are clear. Pulmonary nodule. No endobronchial or tracheal lesion. MEDIASTINUM: Normal heart size. Trace pericardial effusion or thickening. No enlarged hilar or mediastinal lymph nodes. Normal caliber thoracic aorta. CORONARY ARTERY CALCIFICATION: None visualized on this study. PLEURA: There is no pleural effusion. No pleural mass or thickening. AXILLA: No lymphadenopathy. UPPER ABDOMEN: Unremarkable OSSEOUS STRUCTURES: Degenerative changes of the spine. Old mild T8 vertebral body compression fracture. CT/CT lung screening IMPRESSION: Mild emphysema. No pulmonary nodules. ASSESSMENT: Lung-RADS category 1: Negative RECOMMENDATION: Annual low-dose chest CT follow-up in one year recommended
== END 2023-08-13 15:06 | disposition home or self-care (01) ==
LOC: HO.CT 15:05
PROVIDERS: PCP Internal Medicine; Visit Provider Physician Assistant Medical
DX: Z12.2 Encounter for screening for malignant neoplasm of respiratory organs (principal); F17.210 Nicotine dependence, cigarettes, uncomplicated
CPT/HCPCS: 71271; G0296

== ENCOUNTER 2024-06-22 13:11 | Outpatient (AMB) | payer OTHER, SELFPAY ==
[2024-06-22 13:19] VITALS: BP 144/86; PULSE 80; O2SAT 99; BMI 22.9
--- NOTE | 2024-06-22 13:19 | MHC.PC.OV ---
Vital Signs 06/22/24 13:19 06/22/24 13:45 Height 5 ft 7 in Weight 146 lb 8 oz BMI 22.9 BP 144/86 H 130/88 Blood Pressure Location Lt brachial Rt brachial Position Sitting Sitting Pulse 80 Pulse Source Pulse Oximeter Pulse Oximetry (%) 99 Oxygen Delivery Method Room Air Intake Visit Reasons: Elevated BP with headaches Intake Note: Pt is here today for elevated blood pressure and also headaches. Allergies No Known Allergies Allergy (Verified 06/22/24 13:19) Medication List - Last Reconciled 06/22/24 by Jazmin Chavez MD finasteride 1 mg PO DAILY minoxidil 1.25 mg PO DAILY trazodone 100 mg PO BEDTIME Tobacco use date assessed: 06/22/24 Dental Screening Dental Screen Date: 06/22/24 Did you have a dental visit in the last 12 months?: Yes Did you have a dental problem in the last 6 months where you did not have access to dental care?: No Was dental information given to patient?: Patient has dentist HPI Elevated BP with headaches HPI Details Patient presents concerned about elevation in the blood pressure readings during his last 2 visits to urgent care. Patient reports tension feeling in the right temporal area worse at the end of the day. He denies chest pain shortness of breath palpitations. [facility] Medical History Opiate abuse, continuous History of substance abuse Microscopic hematuria Tubular adenoma of colon (~2021) Chronic constipation Nicotine dependence, cigarettes, uncomplicated Chronic anxiety Surgical History History of colonoscopy History of adenoidectomy Family History Father Rectal cancer Mother No problems noted. Social History Housing: House Alcohol intake: current Alcohol intake frequency: a few times a week Patient Tobacco Use Status: Current everyday Tobacco user Tobacco use type: Cigarette Cigarette Packs Per Day: 0.5 Cigarettes Per Day: 8 Years Smoked: onset 20yo, 1/2-1ppd x 38yrs, now 1/2ppd - 30pyh Packs Per Year: 0 Packs per year/per ci.00 e-Cigarette/Vaping Use: Former Use Current occupational status: employed Cognitive needs: No Hearing needs: No Vision needs: Yes Questionnaire PHQ-9 Over the last 2 weeks, how often have you been bothered by any of the following problems? 1. Little interest or pleasure in doing things: not at all 2. Feeling down, depressed, or hopeless: not at all 3. Trouble falling or staying asleep, or sleeping too much: not at all 4. Feeling tired or having little energy: not at all 5. Poor appetite or overeating: not at all 6. Feeling bad about yourself - or that you are a failure or have let yourself or your family down: not at all 7. Trouble concentrating on things, such as reading the newspaper or watching television: not at all 8. Moving or speaking so slowly that other people could have noticed. Or the opposite - being so fidgety or restless that you have been moving around a lot more than usual: not at all 9. Thoughts that you would be better off or of hurting yourself in some way: not at all Total score: 0 Depression Screening Interpretation: Negative Depression Screening Done: Yes 14373 - PHQ-9 Billing: Yes Source: Developed by Drs. Volodymyr Meléndez, Pamella Weiss, Demario Kraft and colleagues, with an educational manuel from [employer]. Thrive Questionnaire Date Thrive assessed: 06/22/24 I am a: Patient What is your living situation today?: I have a steady place to live Within the past 12 months, did the food you bought not last and you didn't have the money to get more?: Never true Within the past 12 months, did you worry whether your food would run out before you got money to buy more?: Never true Do you have trouble paying for medicines?: No Do you have trouble getting transportation to medical appointments?: No Do you have trouble paying your heating and electricity bill?: No Do you have trouble taking care of your child, family member or friend?: No Do you have trouble with day-to-day activities such as bathing, preparing meals, shopping, managing finances, etc.?: No Are you currently unemployed and looking for a job?: No Are you interested in more education?: No Please select the resources that you would like help with: None Currently or been in a relationship where the following occur: No concerns reported THRIVE Score: 0 AUDIT C Alcohol Use Questionnaire (AUDIT-C) 1. How often do you have a drink containing alcohol?: 2-4 times a month 2. How many drinks containing alcohol do you have on a typical day when you are drinking?: 1 or 2 3. How often do you have six or more drinks on one occasion?: Never Total Score: 2 Score Reviewed/Action Taken: Yes YOLETTE-7 AMB Questionnaire YOLETTE-7 Date YOLETTE - 7 assessed: 06/22/24 Feeling nervous, anxious, or on edge: 0 = Not at all Not being able to stop or control worryin = Not at all Worrying too much about different things: 0 = Not at all Trouble relaxin = Not at all Being so restless that it is hard to sit still: 0 = Not at all Becoming easily annoyed or irritable: 0 = Not at all Feeling afraid as if something awful might happen: 0 = Not at all Total YOLETTE-7 score (0-4 normal; 5-9 mild; 10-14 moderate; 15-21 severe): 0 Source: Developed by Drs. Volodymyr Meléndez, Pamella Weiss, Demario Kraft and colleagues, with an educational manuel from [employer]. YOLETTE-7 Assessment Billing YOLETTE-7 Assessment Tool: YOLETTE-7 Assessment 01773 Review of Systems Const All systems reviewed & are unremarkable except as noted in HPI and below ENT Reports no additional complaints Card Reports no additional complaints Resp Reports no additional complaints GI Reports no additional complaints Reports no additional complaints Physical exam (Primary Care) Vital Signs: Last Vital Signs Pulse 80 06/22/24 13:19 BP 144/86 H 06/22/24 13:19 Pulse Ox 99 06/22/24 13:19 Oxygen Delivery Method Room Air 06/22/24 13:19 BMI result Body Mass Index 22.9 Tobacco/Smoking Status: Tobacco use Status Tobacco use date assessed 06/22/24 06/22/24 13:23 Patient Tobacco Use Status Current everyday Tobacco 06/22/24 13:23 Tobacco use type Cigarette 06/22/24 13:23 e-Cigarette/Vaping Use Former Use 06/22/24 13:23 PHQ-9: PHQ-9 Score PHQ-9: Total score 0 06/22/24 13:23 Depression Screening Interpretation: Negative Thrive Assessment: Date of Thrive Assessment Date Thrive assessed 06/22/24 06/22/24 13:23 Currently or been in a relationship where the following occur: No concerns reported Const General: no acute distress HENMT Head: Yes normal to inspection Face and sinus: Yes normal facial exam Throat: Yes posterior oropharynx normal Neck Neck: Yes supple Resp Effort & Inspection: normal respiratory effort Auscultation: clear to auscultation bilaterally Cardio Rhythm: regular rhythm Heart sounds: S1 normal heart sound present and S2 normal heart sound present Assessment and Plan Assessment & Plan (1) Annual physical exam: Code(s): Z00.00 - Encounter for general adult medical examination without abnormal findings (2) Elevated BP without diagnosis of hypertension: Code(s): R03.0 - Elevated blood-pressure reading, without diagnosis of hypertension Plan: Increase cardiovascular activity stress management and low-sodium diet discussed with the patient. He will follow-up for physical in 1 month with a fasting labs before. Orders: Orders Comprehensive [place]. Panel Fast 1 Month Z00.00 - Encounter for general adult medical examination without abnormal findings Lipid Panel 1 Month Z00.00 - Encounter for general adult medical examination without abnormal findings TSH reflex Free T4 1 Month Z00.00 - Encounter for general adult medical examination without abnormal findings UA w Microscopic 1 Month Z00.00 - Encounter for general adult medical examination without abnormal findings PSA,Total (Free>4and<10) 1 Month Z00.00 - Encounter for general adult medical examination without abnormal findings Complete Blood Count Auto Diff 1 Month Z00.00 - Encounter for general adult medical examination without abnormal findings Coding Level of Care Code Est Pt Level 3 (41969) Diagnoses Annual physical exam Z00.00 Elevated BP without diagnosis of hypertension R03.0 Additional Codes YOLETTE-7 Assessment Billing - YOLETTE-7 Assessment Tool: YOLETTE-7 Assessment [id number] ([id number])
[2024-06-22 13:45] VITALS: BP 130/88
== END 2024-06-22 13:49 | disposition home or self-care (01) ==
PROVIDERS: PCP Internal Medicine; Visit Provider Internal Medicine
DX: R03.0 Elevated blood-pressure reading, without diagnosis of hypertension (principal)
CPT/HCPCS: 99213

== ENCOUNTER 2024-07-11 08:44 | Outpatient (REF) | payer OTHER, SELFPAY ==
[2024-07-11 10:13] LABS: MANUAL DIFF FLAG NO
[2024-07-11 10:18] LABS: Basophils Percent Auto 0.6 % (0-2); Eosinophils Absolute Auto 0.1 X10*3/uL (0.0-0.4); Eosinophils Percent Auto 2.2 % (0-4); Hematocrit 47.5 % (42.0-52.0); Hemoglobin 16.4 g/dl (14.0-18.0); Imm Gran Abs Auto 0.03 X10*3/uL (0.00-0.03); Imm Gran Pct Auto 0.6 % (0.0-0.4); Lymphocytes Absolute Auto 1.4 X10*3/uL (1.2-4.9); Lymphocytes Percent Auto 28.7 % (20-40); Mean Corpuscular HGB Conc 34.5 g/dl (31.0-36.0); Mean Corpuscular Hemoglobin 31.2 pg (27.0-33.0); Mean Corpuscular Volume 90.3 fL (80.0-98.0); Mean Platelet Volume 8.4 fL (9.4-12.4); Monocytes Absolute Auto 0.4 X10*3/uL (0.1-1.2); Monocytes Percent Auto 7.4 % (2-11); Neutrophils Percent Auto 60.5 % (45-73); Platelet Count 340 X10*3/uL (160-400); Red Blood Count 5.26 X10*6/uL (4.60-5.80); Red Cell Distribution Width 12.5 % (11.0-16.0)
[2024-07-11 10:19] LABS: Appearance Urine Clear; Color Urine Yellow; Glucose Urine UA Negative (Negative); Leukocyte Esterase Urine Negative (Negative); Nitrite Urine Negative (Negative); Urine Blood Negative (Negative); Urine Ketones Negative (Negative); Urine Protein Negative (Neg-Trace)
[2024-07-11 10:26] LABS: Bacteria Urine None Seen (None Seen); Hyaline Casts Urine 0-2 /LPF (0-2); RBC Urine 0-2 /HPF (0-2); Squamous Epithelial Cell Urine 0-2 /HPF (0-2); WBC Urine 0-5 /HPF (0-5)
[2024-07-11 11:09] LABS: Alanine Aminotransferase 16 U/L (0-40); Albumin Level 4.6 g/dL (3.5-5.0); Alkaline Phosphatase 42 U/L (39-117); Anion Gap 9 (12-20); Aspartate Amino Transferase 17 U/L (5-37); Bilirubin Total 0.6 mg/dL (0.0-1.0); Blood Urea Nitrogen 15 mg/dL (9-16); Calcium 9.1 mg/dL (8.4-10.2); Carbon Dioxide 28 mmol/L (22-29); Chloride 105 mmol/L (96-108); Cholesterol 193 mg/dL (<200); Estimated Glomerular Filt Rate > 60; Glucose Fasting 92 mg/dL (60-99); HDL Cholesterol 69 mg/dL (>40); LDL Cholesterol Calculated 116 mg/dL (<100); Potassium 4.2 mmol/L (3.3-5.1); Sodium 138 mmol/L (135-145); Total Protein 7.5 g/dL (6.5-8.0); Triglycerides 44 mg/dL (<150)
[2024-07-11 11:11] LABS: TSH reflex Free T4 1.05 uIU/mL (0.32-4.0)
[2024-07-11 11:12] LABS: PSA,Total (Free>4and<10) 0.55 ng/mL (0.00-4.00)
== END 2024-07-11 08:45 | disposition home or self-care (01) ==
LOC: HO.HMGCLDS 08:44
PROVIDERS: PCP Internal Medicine; Visit Provider Internal Medicine
DX: Z00.00 Encounter for general adult medical examination without abnormal findings (principal)
CPT/HCPCS: 36415; 80053; 80061; 81001; 84153; 84443; 85025

== ENCOUNTER 2024-07-25 08:16 | Outpatient (AMB) | payer OTHER, SELFPAY ==
[2024-07-25 08:18] VITALS: BP 134/80; PULSE 98; O2SAT 100; BMI 23.0
--- NOTE | 2024-07-25 08:18 | MHC.PC.OV ---
Vital Signs 07/25/24 08:18 Height 5 ft 7 in Weight 147 lb BMI 23.0 BP 134/80 Blood Pressure Location Lt brachial Position Sitting Pulse 98 Pulse Source Pulse Oximeter Pulse Oximetry (%) 100 Oxygen Delivery Method Room Air Intake Visit Reasons: Annual PE Intake Note: Pt is here today for PE. Allergies No Known Allergies Allergy (Verified 07/25/24 08:18) Medication List - Last Reconciled 07/25/24 by Jazmin Chavez MD finasteride 1 mg PO DAILY minoxidil 1.25 mg PO DAILY trazodone 100 mg PO BEDTIME Tobacco use date assessed: 07/25/24 Dental Screening Dental Screen Date: 06/22/24 HPI Annual PE HPI Details PATIENT PRESENTS FOR PE. [facility] Medical History Microscopic hematuria Tubular adenoma of colon (~2021) Chronic constipation Nicotine dependence, cigarettes, uncomplicated Chronic anxiety Surgical History History of colonoscopy History of adenoidectomy Family History Father Rectal cancer Mother No problems noted. Social History (Updated 07/25/24 @ 09:12 by Jazmin Chavez MD) Household Members Other:: lives alone, homosexual, Housing: House Alcohol intake: current Alcohol intake frequency: a few times a week Patient Tobacco Use Status: Current everyday Tobacco user Tobacco use type: Cigarette Cigarette Packs Per Day: 0.5 Cigarettes Per Day: 8 Years Smoked: onset 20yo, 1/2-1ppd x 38yrs, now 1/2ppd - 30pyh e-Cigarette/Vaping Use: Former Use service: No Current occupational status: employed Cognitive needs: No Hearing needs: No Vision needs: Yes Questionnaire Thrive Questionnaire Date Thrive assessed: 06/22/24 I am a: Patient What is your living situation today?: I have a steady place to live Within the past 12 months, did the food you bought not last and you didn't have the money to get more?: Never true Within the past 12 months, did you worry whether your food would run out before you got money to buy more?: Never true Do you have trouble paying for medicines?: No Do you have trouble getting transportation to medical appointments?: No Do you have trouble paying your heating and electricity bill?: No Do you have trouble taking care of your child, family member or friend?: No Do you have trouble with day-to-day activities such as bathing, preparing meals, shopping, managing finances, etc.?: No Are you currently unemployed and looking for a job?: No Are you interested in more education?: No Please select the resources that you would like help with: None Currently or been in a relationship where the following occur: No concerns reported THRIVE Score: 0 YOLETTE-7 AMB Questionnaire YOLETTE-7 Date YOLETTE - 7 assessed: 06/22/24 Source: Developed by Drs. Volodymyr Meléndez, Pamella Weiss, Demario Kraft and colleagues, with an educational manuel from [employer]. Review of Systems Const All systems reviewed & are unremarkable except as noted in HPI and below Eyes Reports no additional complaints ENT Reports no additional complaints Card Reports no additional complaints Resp Reports no additional complaints GI Reports no additional complaints Reports no additional complaints Physical exam (Primary Care) Vital Signs: Last Vital Signs Pulse 98 07/25/24 08:18 BP 134/80 07/25/24 08:18 Pulse Ox 100 07/25/24 08:18 Oxygen Delivery Method Room Air 07/25/24 08:18 BMI result Body Mass Index 23.0 Tobacco/Smoking Status: Tobacco use Status Tobacco use date assessed 07/25/24 07/25/24 08:23 Patient Tobacco Use Status Current everyday Tobacco 07/25/24 08:23 Tobacco use type Cigarette 07/25/24 08:23 e-Cigarette/Vaping Use Former Use 07/25/24 08:23 Thrive Assessment: Date of Thrive Assessment Date Thrive assessed 06/22/24 07/25/24 08:23 Currently or been in a relationship where the following occur: No concerns reported Const General: no acute distress HENMT Head: Yes normal to inspection Ears: hearing grossly normal bilaterally Mouth: Normal oral and palatal mucosa present Throat: Yes posterior oropharynx normal Eyes General: appearance normal, both eyes and all related structures Neck Neck: Yes no lymphadenopathy and Yes supple Resp Effort & Inspection: normal respiratory effort Auscultation: clear to auscultation bilaterally Cardio Rhythm: regular rhythm Heart sounds: S1 normal heart sound present and S2 normal heart sound present GI Inspection: Yes normal to inspection Palpation (GI): Soft to palpation Percussion: Yes normal to percussion Auscultation: normal bowel sounds Coding Level of Care Code Est Pt Prev Care 40-64y(22205) Diagnoses Nicotine dependence, cigarettes, uncomplicated F17.210 Microscopic hematuria R31.29 Tubular adenoma of colon D12.6 Annual physical exam Z00.00 Assessment & Plan Assessment & Plan (1) Nicotine dependence, cigarettes, uncomplicated: Comment: (current smoker - onset 20yo, 1/2-1ppd x 38yrs, now 1/2ppd - 30pyh) Code(s): F17.210 - Nicotine dependence, cigarettes, uncomplicated Category: Medical Plan: Tobacco quitting discussed with the patient he is a lung cancer screening. (2) Microscopic hematuria: Comment: (known to Dr. Villalobos - work up for hematuria in 2020 Code(s): R31.29 - Other microscopic hematuria Category: Medical Plan: Follow-up with urology (3) Tubular adenoma of colon: Onset Date: ~2021 Comment: (TA on 2021 scope) Code(s): D12.6 - Benign neoplasm of colon, unspecified Category: Medical Plan: Due for colonoscopy in 2026 (4) Annual physical exam: Code(s): Z00.00 - Encounter for general adult medical examination without abnormal findings Category: Medical Plan: Well-balanced diet regular exercise discussed with the patient Orders: Orders Comprehensive [place]. Panel Fast 1 Year Z00.00 - Encounter for general adult medical examination without abnormal findings Lipid Panel 1 Year Z00.00 - Encounter for general adult medical examination without abnormal findings Complete Blood Count Auto Diff 1 Year Z00.00 - Encounter for general adult medical examination without abnormal findings PSA,Total (Free>4and<10) 1 Year Z00.00 - Encounter for general adult medical examination without abnormal findings UA w Microscopic 1 Year Z00.00 - Encounter for general adult medical examination without abnormal findings Medications: Refilled trazodone 100 mg PO BEDTIME 90 tabs 3RF
== END 2024-07-25 08:56 | disposition home or self-care (01) ==
PROVIDERS: PCP Internal Medicine; Visit Provider Internal Medicine
DX: F17.210 Nicotine dependence, cigarettes, uncomplicated (principal); R31.29 Other microscopic hematuria; D12.6 Benign neoplasm of colon, unspecified; Z00.00 Encounter for general adult medical examination without abnormal findings

== ENCOUNTER → 2024-07-25 08:16 | Outpatient (BNVA) | payer OTHER, SELFPAY | PROVIDERS: PCP Internal Medicine; Visit Provider Internal Medicine | DX: Z00.01 Encounter for general adult medical examination with abnormal findings (principal); R31.29 Other microscopic hematuria; D12.6 Benign neoplasm of colon, unspecified; F17.210 Nicotine dependence, cigarettes, uncomplicated; Z71.6 Tobacco abuse counseling | CPT/HCPCS: 99396 ==

== ENCOUNTER 2024-08-22 10:03 | Outpatient (REF) | payer OTHER, SELFPAY | END 2024-08-22 10:04 | disposition home or self-care (01) | LOC: HO.CT 10:03 | PROVIDERS: PCP Internal Medicine; Visit Provider Physician Assistant Medical | DX: Z12.2 Encounter for screening for malignant neoplasm of respiratory organs (principal); F17.210 Nicotine dependence, cigarettes, uncomplicated | CPT/HCPCS: 71271 ==

== ENCOUNTER 2025-03-27 09:49 | Outpatient (AMB) | payer OTHER, SELFPAY ==
--- NOTE | 2025-03-27 09:54 | MHC.OFFVIS ---
Vital Signs 03/27/25 10:04 Height 5 ft 9 in Weight 150 lb BMI 22.1 BP 163/90 H Blood Pressure Location Lt brachial Position Sitting Pulse 94 Intake Visit Reasons: umbilical hernia Intake Note: Patient is seen in office for evaluation of an umbilical hernia. 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 He was previously evaluated by Dr. Baldwin and was planning on surgical repair but this subsequently fell through. Since his last visit he feels the hernia has increased in size but denies any significant nausea, vomiting, fever, chills, diarrhea or constipation. His job does not require a significant amount of lifting. He denies any previous surgery in this location. [facility] Medical History Microscopic hematuria Tubular adenoma of colon (~2021) Chronic constipation Nicotine dependence, cigarettes, uncomplicated Chronic anxiety Surgical History History of colonoscopy History of adenoidectomy Family History Father Rectal cancer Mother No problems noted. Social History Household Members Other:: lives alone, homosexual, Housing: House Alcohol intake: current Alcohol intake frequency: a few times a week Patient Tobacco Use Status: Current everyday Tobacco user Tobacco use type: Cigarette Cigarette Packs Per Day: 0.5 Cigarettes Per Day: 8 Years Smoked: onset 20yo, 1/2-1ppd x 38yrs, now 1/2ppd - 30pyh e-Cigarette/Vaping Use: Former Use service: No Current occupational status: employed Cognitive needs: No Hearing needs: No Vision needs: Yes Review of Systems Const All systems reviewed & are unremarkable except as noted in HPI and below Physical Exam Vital Signs: Last Vital Signs Pulse 94 03/27/25 10:04 BP 163/90 H 03/27/25 10:04 BMI result Body Mass Index 22.1 Const General: cooperative and no acute distress Nutritional Appearance: well nourished Orientation/consciousness: patient oriented x3 Limitations: no limitations HEENT Head: Yes normocephalic and Yes atraumatic Ears: hearing grossly normal bilaterally Resp Effort & Inspection: normal respiratory effort, no audible wheezes, no cough and no respiratory distress Cardio Jugular venous distension: no JVD GI Other: Easily identified umbilical hernia measuring approximately 2-3 cm in diameter, reducible with light pressure. No tenderness to palpation. No overlying skin redness or discharge. Inspection: Yes normal to inspection Skin Other: Warm, dry, no rash Neuro General: patient oriented x3 Extrem General: Yes no clubbing, cyanosis or edema Assessment & Plan Assessment & Plan (1) Umbilical hernia without obstruction and without gangrene: Code(s): K42.9 - Umbilical hernia without obstruction or gangrene Category: Medical Plan 59-year-old male patient presenting with a reducible umbilical hernia which is gradually increasing in size. I recommended repair of this umbilical hernia with mesh and after discussion of the procedure, risks, and alternatives, he consents to the surgery. He knows he should avoid lifting greater than 10 lb for the next month after the surgery. Coding Level of Care Code New Pt Level 4 (99299) Diagnoses Umbilical hernia without obstruction and without gangrene K42.9
[2025-03-27 10:04] VITALS: BP 163/90; PULSE 94; BMI 22.1
== END 2025-03-27 10:20 | disposition home or self-care (01) ==
LOC: HO.HGS 09:49
PROVIDERS: PCP Internal Medicine; Visit Provider Surgery
DX: K42.9 Umbilical hernia without obstruction or gangrene (principal)
CPT/HCPCS: 99204

== ENCOUNTER → 2025-03-27 09:49 | Outpatient (BNVA) | payer OTHER, SELFPAY | PROVIDERS: PCP Internal Medicine; Visit Provider Surgery | DX: K42.9 Umbilical hernia without obstruction or gangrene (principal) | CPT/HCPCS: 99202 ==

== ENCOUNTER 2025-05-07 07:14 | Day surgery (SDC) | payer OTHER, SELFPAY ==
[2025-05-03 13:36] VITALS: BMI 22.1
--- NOTE | 2025-05-03 14:41 | HO.ANESPROP2 ---
Documented by User: Ana Penn NP 05/03/25 14:42 HPI - Anesthesia Eval Consult details Narrative: 59yo M for Repair Hernia Umbilical Reducible with mesh PMFSH Active Problems Active Problems: All Active Problems Umbilical hernia without obstruction and without gangrene (Acute) Elevated BP without diagnosis of hypertension (Acute) Heart murmur (Acute) Umbilical hernia (Acute) Family history of colon cancer (Acute) Dysplastic nevus (Acute) Weight loss (Acute) Back pain (Acute) Urinary hesitancy due to benign prostatic hyperplasia (Acute) BPH w urinary obs/LUTS (Acute) Nicotine dependence, cigarettes, uncomplicated (Acute) Microscopic hematuria (Acute) Tubular adenoma of colon (Acute ~2021) Chronic constipation (Acute) Chronic anxiety (Acute) Past Medical History Medical History (Updated 05/03/25 @ 13:34 by Jillian Muniz RN) Murmur Opiate dependence Anxiety BPH (benign prostatic hyperplasia) Microscopic hematuria Tubular adenoma of colon (~2021) Chronic constipation Nicotine dependence, cigarettes, uncomplicated Chronic anxiety Family History Family History Father Rectal cancer Mother No problems noted. Family history of problems with anesthesia: No Surgical History Surgical History History of colonoscopy History of adenoidectomy History of Problems with Anesthesia: No Social History Social History Household Members Other:: lives alone, homosexual, Housing: House Do you presently have visiting nurse or other home services: No Alcohol intake: current Alcohol intake frequency: holidays/special occasions only Patient Tobacco Use Status: Current everyday Tobacco user Tobacco use type: Cigarette Cigarette Packs Per Day: 0.5 Cigarettes Per Day: 10 Years Smoked: onset 20yo, 1/2-1ppd x 38yrs, now 1/2ppd - 30pyh e-Cigarette/Vaping Use: Former Use Use of substances other than those prescribed or required for medical reasons: No Have you been hit, kicked, punched, or otherwise hurt by someone within the past year? If so, by whom?: No Are you DNR?: No Advance Directives: No Advance Directives Information Provided: Yes Poor oral hygiene: Yes service: No Current occupational status: employed Cognitive needs: No Hearing needs: No Vision needs: Yes Meds Allergies Allergy/AdvReac Type Severity Reaction Status Date / Time No Known Allergies Allergy Verified 05/07/25 07:23 Home Medications ?Medication ?Instructions ?Recorded ?Confirmed ?Last Taken ?Type minoxidil 2.5 mg tablet 1.25 mg PO DAILY 02/16/22 05/07/25 05/07/25 History finasteride 1 mg tablet 1 mg PO DAILY 06/10/23 05/07/25 05/07/25 History Exam Height,Weight and Vital Signs: Height 5 ft 9 in Weight 68.039 kg Narrative Narrative: ECHO 2022 Conclusions: - 1. Normal LV systolic and diastolic function with LVEF of 55 60% 2. Mild fibrocalcific aortic valve changes noted with normal cardiac valvular Dopplers 3. Upper limits of normal ascending aortic size 4. Normal RV systolic pressure 5. No gross pericardial effusion Assessment and Plan Assessment Anesthesia Assessment: Chart Reviewed Final Anesthetic Review Family History of Problems with Anesthesia: No History of Problems with Anesthesia: No Documented by User: Gasper Gonzales MD 05/07/25 09:05 [facility] Past Medical History Medical History (Updated 05/03/25 @ 13:34 by Jillian Muniz RN) Murmur Opiate dependence Anxiety BPH (benign prostatic hyperplasia) Microscopic hematuria Tubular adenoma of colon (~2021) Chronic constipation Nicotine dependence, cigarettes, uncomplicated Chronic anxiety Family History Family History Father Rectal cancer Mother No problems noted. Surgical History Surgical History History of colonoscopy History of adenoidectomy Social History Social History Household Members Other:: lives alone, homosexual, Housing: House Do you presently have visiting nurse or other home services: No Alcohol intake: current Alcohol intake frequency: holidays/special occasions only Patient Tobacco Use Status: Current everyday Tobacco user Tobacco use type: Cigarette Cigarette Packs Per Day: 0.5 Cigarettes Per Day: 10 Years Smoked: onset 20yo, 1/2-1ppd x 38yrs, now 1/2ppd - 30pyh e-Cigarette/Vaping Use: Former Use Use of substances other than those prescribed or required for medical reasons: No Have you been hit, kicked, punched, or otherwise hurt by someone within the past year? If so, by whom?: No Are you DNR?: No Advance Directives: No Advance Directives Information Provided: Yes Poor oral hygiene: Yes service: No Current occupational status: employed Cognitive needs: No Hearing needs: No Vision needs: Yes Meds Allergies Allergy/AdvReac Type Severity Reaction Status Date / Time No Known Allergies Allergy Verified 05/07/25 07:23 Home Medications ?Medication ?Instructions ?Recorded ?Confirmed ?Last Taken ?Type minoxidil 2.5 mg tablet 1.25 mg PO DAILY 02/16/22 05/07/25 05/07/25 History finasteride 1 mg tablet 1 mg PO DAILY 06/10/23 05/07/25 05/07/25 History Exam Airway Mallampati Class: II TM Dist: >3cm Neck ROM: Full Denture: Upper and Lower Heart: ok Lungs: ok Assessment and Plan Assessment Anesthesia Assessment: Anesthesia Plan Discussed Final Anesthetic Review NPO: Yes ASA Class: III Final Preanesthetic Review: No Changes in Pt Med Stat, Meds/Allgs Chart Reviewed, Consent Obtained/Reviewed and Anes Risks/Benef Reviewed Patient Risk: Intermediate Procedure Risk: Low Anesthetic Plan Anesthetic Plan: GA and Agree w/ Assess. and Plan Disposition: Standard PACU
[2025-05-07] MEDS: Lactated Ringers 1,000 ML 100 ML IVCONT (08:07)
[2025-05-07 08:08] VITALS: BP 119/80; PULSE 63; RESP 12; TEMP 36.6; O2SAT 97; BMI 22.4
--- NOTE | 2025-05-07 08:54 | MHC.SHP ---
Pre-Procedural Eval Section A - 24 Hr Update-Section A only Date of Service: 05/07/25 The patient is an INPATIENT: No Changes since office visit: Yes Patient answered all questions; No Cold of Flu in the past 2 weeks, No New Medical Problems and No Changes in Medication The patient has been examined within 24 hours of the surgical procedure. The History & Physical has been completed within 30 days and I have reviewed it.: No Section B - Complete if H&P > 30 days Chief Complaint: Umbilical hernia without obstruction or gangrene Details of Present Illness: no changes Relevant Family History (Specify if Yes): No Relevant Social History: None Present Medications: None Medical History: No relevant PMH History of Previous Operations: No relevant previous surgery Allergies: Allergies Allergy/AdvReac Type Severity Reaction Status Date / Time No Known Allergies Allergy Verified 05/07/25 07:23 Review of Systems Sugical H&P ROS: Negative: Constitution, Cardiovascular, Respiratory, Neurological, Psychiatric, Hem-Onc, Allergic/Immunologic, Gastrointestinal, Genitourinary, Musculoskeletal, Integumentary, Endocrine and Eyes/Ears/Nose/Throat Exam Surgical H&P Exam: Normal: HEENT, Normal: Heart, Normal: Lungs, Normal: Extremities, Normal: Abdomen, Normal: Skin and Normal: Neurological Plan Diagnosis/Plan: Unchanged I have reviewed the history and physical and performed a pertinent physical examination on my patient. No changes have occurred unless specified. Time Spent With Patient Time: Total time managing care of this patient today ____ minutes.
--- NOTE | 2025-05-07 09:47 | W.PM.OPN ---
Operative Note Operative Note Date of Service: 05/07/25 Narrative: Preoperative diagnosis: Umbilical hernia, reducible Postoperative diagnosis: Same Procedure: Repair of reducible umbilical hernia with mesh Surgeon: Gerry Noble MD Piano Builder: Vivi Rodriges PA-C; DARLINE Giraldo Anesthesia: General LMA Indications for procedure: 59-year-old male patient presenting with a reducible umbilical hernia which is causing some discomfort and gradually increasing in size Operative findings: Reducible umbilical hernia with incarcerated preperitoneal fat Specimen: None Estimated blood loss: Less than 2 mL Complications: None Procedure details: Patient was brought to the OR and placed in a supine position. After administering general anesthesia the patient's abdomen was prepped with ChloraPrep and draped in a sterile fashion. A surgical time-out was called the consent confirmed. Patient received preoperative antibiotics and Venodyne boots were in place. Local anesthesia was infiltrated in a transverse fashion over the umbilicus. A transverse incision was then made with a scalpel and carried out through subcutaneous tissue up to the hernia sac. The hernia sac was dissected down to the fascial defect. The hernia sac was dissected off the umbilical skin using electrocautery. The sac was circumferentially dissected down to the fascial defect and the sac reduced into the abdominal cavity. A preperitoneal space was then created using electrocautery. A 4.6 cm round Ventralex mesh was then obtained. This was placed in the preperitoneal space and secured in 4 quadrants using 1 Tycron suture. Fascia was then closed over the mesh using [id number] 1 Tycron sutures. Wounds were then irrigated with saline solution and suctioned dry. Additional local was infiltrated into the muscular and subcutaneous tissue. Umbilical skin was then secured to the fascia using a 3-0 Polysorb suture. Dermis was reapproximated using interrupted 3-0 Polysorb sutures. Skin was closed using a running subcuticular 4-0 Polysorb suture. Steri-Strips, 4 x 4 gauze and Tegaderm were then applied. The patient tolerated the procedure well. Sponge, instrument, and needle counts reported as correct. The patient was transferred to PACU in stable condition.
[2025-05-07 09:53] VITALS: BP 126/62; PULSE 68; RESP 20; TEMP 36.3; O2SAT 95
[2025-05-07 09:58] VITALS: BP 122/69; PULSE 66; RESP 20; O2SAT 95
[2025-05-07 10:03] VITALS: BP 118/68; PULSE 59; RESP 15; O2SAT 95
[2025-05-07 10:08] VITALS: BP 115/72; PULSE 58; RESP 16; O2SAT 98
[2025-05-07 10:23] VITALS: BP 132/75; PULSE 58; RESP 16; TEMP 36.2; O2SAT 98
== END 2025-05-07 11:07 | disposition home or self-care (01) ==
PROVIDERS: PCP Internal Medicine; Visit Provider Surgery
PROC: (CPT 49591; principal; 2025-05-07 08:40)
DX: K42.9 Umbilical hernia without obstruction or gangrene (principal); K59.09 Other constipation; F41.8 Other specified anxiety disorders; Z79.899 Other long term (current) drug therapy; F17.210 Nicotine dependence, cigarettes, uncomplicated
CPT/HCPCS: 49591; C1781; J0690; J1885; J2003; J2704; J3010

== ENCOUNTER → 2025-05-07 07:14 | Outpatient (BNV) | payer OTHER, SELFPAY | PROVIDERS: PCP Internal Medicine; Visit Provider Surgery | DX: K42.0 Umbilical hernia with obstruction, without gangrene (principal) | CPT/HCPCS: 49592 ==

== ENCOUNTER 2025-05-22 09:27 | Outpatient (AMB) | payer OTHER, SELFPAY ==
--- NOTE | 2025-05-22 09:38 | MHC.OFFVIS ---
Vital Signs 05/22/25 09:46 Height 5 ft 9 in Weight 151 lb 14.376 oz BMI 22.4 Respiration 16 Intake Visit Reasons: s/p Umbilical hernia with mesh Intake Note: Patient is seen in office for post op assessment post umbilical hernia repair. 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 He tolerated the procedure well and denies any nausea, vomiting, fever or chills. [facility] Medical History Murmur Opiate dependence Anxiety BPH (benign prostatic hyperplasia) Microscopic hematuria Tubular adenoma of colon (~2021) Chronic constipation Nicotine dependence, cigarettes, uncomplicated Chronic anxiety Surgical History History of umbilical hernia repair (05/07/25) History of colonoscopy History of adenoidectomy Family History Father Rectal cancer Mother No problems noted. Social History Household Members Other:: lives alone, homosexual, Housing: House Do you presently have visiting nurse or other home services: No Alcohol intake: current Alcohol intake frequency: holidays/special occasions only Patient Tobacco Use Status: Current everyday Tobacco user Tobacco use type: Cigarette Cigarette Packs Per Day: 0.5 Cigarettes Per Day: 10 Years Smoked: onset 20yo, 1/2-1ppd x 40yrs, now 1/2ppd - 30pyh e-Cigarette/Vaping Use: Former Use service: No Current occupational status: employed Cognitive needs: No Hearing needs: No Vision needs: Yes Physical Exam Vital Signs: Last Vital Signs Resp 16 05/22/25 09:46 BMI result Body Mass Index 22.4 Const Other: No acute distress, alert and oriented Resp Other: Breathing comfortably on room air GI Other: Soft and nondistended, well-healed incision with no evidence of recurrence with Valsalva maneuvers. Normal healing ridge palpable Skin Other: Warm, dry, no rash Extrem Other: No edema Assessment & Plan Assessment & Plan (1) Umbilical hernia: Code(s): K42.9 - Umbilical hernia without obstruction or gangrene Category: Medical Qualifiers: Obstruction and gangrene presence: without obstruction or gangrene Qualified Code(s): K42.9 - Umbilical hernia without obstruction or gangrene Plan 59-year-old male patient status post repair of an umbilical hernia with mesh. He tolerated the procedure well in his wounds are healing nicely. He should continue to avoid lifting greater than 10 lb and return approximately 1 month for follow-up examination. Coding Level of Care Code Global (13357) Diagnoses Umbilical hernia without obstruction and without gangrene K42.9 Obstruction and gangrene presence: without obstruction or gangrene
[2025-05-22 09:46] VITALS: RESP 16; BMI 22.4
== END 2025-05-22 09:52 | disposition home or self-care (01) ==
LOC: HO.HGS 09:28
PROVIDERS: PCP Internal Medicine; Visit Provider Surgery
DX: K42.9 Umbilical hernia without obstruction or gangrene (principal)
CPT/HCPCS: 99212

== ENCOUNTER → 2025-05-22 09:27 | Outpatient (BNVA) | payer OTHER, SELFPAY | PROVIDERS: PCP Internal Medicine; Visit Provider Surgery | DX: K42.9 Umbilical hernia without obstruction or gangrene (principal); Z98.890 Other specified postprocedural states | CPT/HCPCS: 99212 ==

== ENCOUNTER 2025-07-17 07:46 | Outpatient (REF) | payer OTHER, SELFPAY ==
[2025-07-17 10:33] LABS: Appearance Urine Clear; Glucose Urine UA Negative (Negative); PH 5.5 (5.0-9.0); Specific Gravity - Urine 1.015 (1.005-1.025); UMIC TRIGGER UA YES
[2025-07-17 10:39] LABS: MANUAL DIFF FLAG NO
[2025-07-17 10:46] LABS: Hematocrit 45.0 % (42.0-52.0); Hemoglobin 15.5 g/dl (14.0-18.0); Imm Gran Abs Auto 0.02 X10*3/uL (0.00-0.03); Imm Gran Pct Auto 0.5 % (0.0-0.4); Lymphocytes Absolute Auto 1.5 X10*3/uL (1.2-4.9); Mean Corpuscular HGB Conc 34.4 g/dl (31.0-36.0); Mean Corpuscular Hemoglobin 31.1 pg (27.0-33.0); Mean Corpuscular Volume 90.2 fL (80.0-98.0); NRBC Abs Auto 0.000 X10*3/uL (0.0-0.012); NRBC Pct Auto 0.0 /100WBC (0.0-0.2); Platelet Count 347 X10*3/uL (160-400); Red Blood Count 4.99 X10*6/uL (4.60-5.80); White Blood Count 4.3 X10*3/uL (4.8-10.8)
[2025-07-17 11:31] LABS: Alanine Aminotransferase 15 U/L (0-40); Albumin Level 4.3 g/dL (3.5-5.0); Alkaline Phosphatase 37 U/L (39-117); Anion Gap 11 (12-20); Aspartate Amino Transferase 18 U/L (5-37); Blood Urea Nitrogen 15 mg/dL (9-16); Calcium 8.6 mg/dL (8.4-10.2); Carbon Dioxide 26 mmol/L (22-29); Chloride 108 mmol/L (96-108); Cholesterol 163 mg/dL (<200); Estimated Glomerular Filt Rate > 60; HDL Cholesterol 56 mg/dL (>40); Potassium 4.0 mmol/L (3.3-5.1); Sodium 141 mmol/L (135-145); Total Protein 6.9 g/dL (6.5-8.0); Triglycerides 48 mg/dL (<150)
[2025-07-17 11:42] LABS: PSA,Total (Free>4and<10) 0.56 ng/mL (0.00-4.00)
== END 2025-07-17 07:47 | disposition home or self-care (01) ==
LOC: HO.HMGCLDS 07:46
PROVIDERS: PCP Internal Medicine; Visit Provider Internal Medicine
DX: Z00.00 Encounter for general adult medical examination without abnormal findings (principal)
CPT/HCPCS: 36415; 80053; 80061; 81001; 84153; 85025

== ENCOUNTER 2025-07-31 08:11 | Outpatient (REF) | payer OTHER, SELFPAY ==
[2025-08-01 03:54] LABS: HIV Num 1 0.08 S/CO (0.00-0.99); ~HepC Num1 0.20 S/CO (0.00-0.79); ~Hepatitis C Antibody Nonreactive (Nonreactive)
== END 2025-07-31 08:12 | disposition home or self-care (01) ==
LOC: HO.HMGCLDS 08:11
PROVIDERS: PCP Internal Medicine; Visit Provider Internal Medicine
DX: Z00.00 Encounter for general adult medical examination without abnormal findings (principal); Z79.899 Other long term (current) drug therapy
CPT/HCPCS: 36415; 86803; 87389; 96127; 99396

== ENCOUNTER 2025-07-31 08:11 | Outpatient (AMB) | payer OTHER, SELFPAY ==
--- NOTE | 2025-07-31 08:22 | MHC.PC.OV ---
Vital Signs 07/31/25 08:28 Height 5 ft 9 in Weight 150 lb BMI 22.1 BP 126/84 Blood Pressure Location Lt brachial Position Sitting Respiration 18 Pulse 86 Pulse Source Pulse Oximeter Temp 98.1 F Temp Source Oral Pulse Oximetry (%) 99 Oxygen Delivery Method Room Air Intake Visit Reasons: Annual PE Intake Note: Pt is here today for PE. Allergies No Known Allergies Allergy (Verified 07/31/25 08:28) Medication List - Last Reconciled 07/31/25 by Jazmin Chavez MD emtricitabine-tenofovir (TDF) 200-300 mg (Truvada) 1 tab PO DAILY finasteride 1 mg PO DAILY minoxidil 2.5 mg PO BID sildenafil (Viagra) 100 mg PO DAILY PRN trazodone 100 mg PO BEDTIME Tobacco use date assessed: 07/31/25 Dental Screening Dental Screen Date: 07/31/25 Did you have a dental visit in the last 12 months?: Yes Did you have a dental problem in the last 6 months where you did not have access to dental care?: No Was dental information given to patient?: Patient has dentist HPI Annual PE HPI Details Patient presents for physical. [facility] Medical History Heart murmur Annual physical exam Murmur Opiate dependence Anxiety BPH (benign prostatic hyperplasia) Microscopic hematuria Tubular adenoma of colon (~2021) Chronic constipation Nicotine dependence, cigarettes, uncomplicated Chronic anxiety Surgical History History of umbilical hernia repair (05/07/25) History of colonoscopy History of adenoidectomy Family History Father Rectal cancer Mother No problems noted. Social History Household Members Other:: lives alone, homosexual, Housing: House Do you presently have visiting nurse or other home services: No Alcohol intake: current Alcohol intake frequency: holidays/special occasions only Patient Tobacco Use Status: Current everyday Tobacco user Tobacco use type: Cigarette Cigarette Packs Per Day: 0.5 Cigarettes Per Day: 10 Years Smoked: onset 20yo, 1/2-1ppd x 40yrs, now 1/2ppd - 30pyh e-Cigarette/Vaping Use: Former Use service: No Current occupational status: employed Cognitive needs: No Hearing needs: No Vision needs: Yes Questionnaire PHQ-9 Over the last 2 weeks, how often have you been bothered by any of the following problems? 1. Little interest or pleasure in doing things: not at all 2. Feeling down, depressed, or hopeless: not at all 3. Trouble falling or staying asleep, or sleeping too much: not at all 4. Feeling tired or having little energy: not at all 5. Poor appetite or overeating: not at all 6. Feeling bad about yourself - or that you are a failure or have let yourself or your family down: not at all 7. Trouble concentrating on things, such as reading the newspaper or watching television: not at all 8. Moving or speaking so slowly that other people could have noticed. Or the opposite - being so fidgety or restless that you have been moving around a lot more than usual: not at all 9. Thoughts that you would be better off or of hurting yourself in some way: not at all Total score: 0 Depression Screening Interpretation: Negative Depression Screening Done: Yes 38708 - PHQ-9 Billing: Yes Source: Developed by Drs. Volodymyr Meléndez, Pamella Weiss, Demario Kraft and colleagues, with an educational manuel from [employer]. Thrive Questionnaire Date Thrive assessed: 07/31/25 I am a: Patient What is your living situation today?: I have a steady place to live Within the past 12 months, did the food you bought not last and you didn't have the money to get more?: Never true Within the past 12 months, did you worry whether your food would run out before you got money to buy more?: Never true Do you have trouble paying for medicines?: No Do you have trouble getting transportation to medical appointments?: No Do you have trouble paying your heating and electricity bill?: No Do you have trouble taking care of your child, family member or friend?: No Do you have trouble with day-to-day activities such as bathing, preparing meals, shopping, managing finances, etc.?: No Are you currently unemployed and looking for a job?: No Are you interested in more education?: No Please select the resources that you would like help with: None Currently or been in a relationship where the following occur: No concerns reported THRIVE Score: 0 AUDIT C Alcohol Use Questionnaire (AUDIT-C) 1. How often do you have a drink containing alcohol?: 2-4 times a month 2. How many drinks containing alcohol do you have on a typical day when you are drinking?: 1 or 2 3. How often do you have six or more drinks on one occasion?: Never Total Score: 2 YOLETTE-7 AMB Questionnaire YOLETTE-7 Date YOLETTE - 7 assessed: 07/31/25 Feeling nervous, anxious, or on edge: 0 = Not at all Not being able to stop or control worryin = Not at all Worrying too much about different things: 0 = Not at all Trouble relaxin = Not at all Being so restless that it is hard to sit still: 0 = Not at all Becoming easily annoyed or irritable: 0 = Not at all Feeling afraid as if something awful might happen: 0 = Not at all Total YOLETTE-7 score (0-4 normal; 5-9 mild; 10-14 moderate; 15-21 severe): 0 Source: Developed by Drs. Volodymyr Meléndez, Pamella Weiss, Demario Kraft and colleagues, with an educational manuel from [employer]. YOLETTE-7 Assessment Billing YOLETTE-7 Assessment Tool: YOLETTE-7 Assessment 24020 Review of Systems Const All systems reviewed & are unremarkable except as noted in HPI and below Eyes Reports no additional complaints ENT Reports no additional complaints Card Reports no additional complaints Resp Reports no additional complaints GI Reports no additional complaints Reports no additional complaints Physical exam (Primary Care) Vital Signs: Last Vital Signs Temp 98.1 F 07/31/25 08:28 Pulse 86 07/31/25 08:28 Resp 18 07/31/25 08:28 BP 126/84 07/31/25 08:28 Pulse Ox 99 07/31/25 08:28 Oxygen Delivery Method Room Air 07/31/25 08:28 BMI result Body Mass Index 22.1 Tobacco/Smoking Status: Tobacco use Status Tobacco use date assessed 07/31/25 07/31/25 08:29 Patient Tobacco Use Status Current everyday Tobacco 07/31/25 08:24 Tobacco use type Cigarette 07/31/25 08:24 e-Cigarette/Vaping Use Former Use 07/31/25 08:24 PHQ-9: PHQ-9 Score PHQ-9: Total score 0 07/31/25 08:29 Depression Screening Interpretation: Negative Thrive Assessment: Date of Thrive Assessment Date Thrive assessed 07/31/25 07/31/25 08:29 Currently or been in a relationship where the following occur: No concerns reported Const General: no acute distress HENMT Head: Yes normal to inspection Ears: TM's normal bilaterally Face and sinus: Yes normal facial exam Mouth: Normal oral and palatal mucosa present Throat: Yes posterior oropharynx normal Eyes General: appearance normal, both eyes and all related structures Neck Neck: Yes no lymphadenopathy and Yes supple Resp Effort & Inspection: normal respiratory effort Auscultation: clear to auscultation bilaterally Cardio Rhythm: regular rhythm Heart sounds: S1 normal heart sound present and S2 normal heart sound present GI Inspection: Yes normal to inspection Palpation (GI): Soft to palpation Percussion: Yes normal to percussion Auscultation: normal bowel sounds Coding Level of Care Code Est Pt Prev Care 40-64y(51480) Diagnoses Annual physical exam Z00.00 Additional Codes YOLETTE-7 Assessment Billing - YOLETTE-7 Assessment Tool: YOLETTE-7 Assessment 76362 ([id number]) PHQ-9 - 80084 - PHQ-9 Billing: Yes ([id number]) Assessment & Plan Assessment & Plan (1) Annual physical exam: Code(s): Z00.00 - Encounter for general adult medical examination without abnormal findings Category: Medical Plan: Well-balanced diet regular physical activity discussed with the patient. He is up-to-date with colonoscopy. For chronic BPH patient will start finasteride 5 mg daily. He is established with therapist on chronic insomnia and anxiety controlled on trazodone. Patient is interested in starting PrEP Truvada. He was advised to have HIV syphilis hepatitis-C check before starting the medication and every 3 months afterwards Orders: Orders Syphilis Screen Today Z00.00 - Encounter for general adult medical examination without abnormal findings Hepatitis C Antibody Today Z00.00 - Encounter for general adult medical examination without abnormal findings Hepatitis C Antibody 6 Months Z00.00 - Encounter for general adult medical examination without abnormal findings Comprehensive [place]. Panel Fast 6 Months Z00.00 - Encounter for general adult medical examination without abnormal findings Comprehensive [place]. Panel Fast 1 Year Z00.00 - Encounter for general adult medical examination without abnormal findings Lipid Panel 1 Year Z00.00 - Encounter for general adult medical examination without abnormal findings HIV Ab/Ag 1 Year Z00.00 - Encounter for general adult medical examination without abnormal findings Syphilis Screen 1 Year Z00.00 - Encounter for general adult medical examination without abnormal findings HIV Ab/Ag Today Z00.00 - Encounter for general adult medical examination without abnormal findings HIV Ab/Ag 3 Months I51.89 - Other ill-defined heart diseases Syphilis Screen 3 Months I51.89 - Other ill-defined heart diseases Hepatitis C Antibody 3 Months I51.89 - Other ill-defined heart diseases HIV Ab/Ag 6 Months Z00.00 - Encounter for general adult medical examination without abnormal findings Syphilis Screen 6 Months Z00.00 - Encounter for general adult medical examination without abnormal findings Complete Blood Count Auto Diff 1 Year Z00. - Encounter for general adult medical examination without abnormal findings PSA,Total (Free>4and<10) 1 Year Z00.00 - Encounter for general adult medical examination without abnormal findings UA w Microscopic 1 Year Z00.00 - Encounter for general adult medical examination without abnormal findings Hepatitis C Antibody 1 Year Z00.00 - Encounter for general adult medical examination without abnormal findings Medications: New emtricitabine-tenofovir (TDF) 200-300 mg (Truvada) 1 tab PO DAILY 30 tabs 6RF finasteride 5 mg PO DAILY 90 tabs 3RF
[2025-07-31 08:28] VITALS: BP 126/84; PULSE 86; RESP 18; TEMP 36.7; O2SAT 99; BMI 22.1
== END 2025-07-31 09:34 | disposition home or self-care (01) ==
LOC: HO.HMCC 08:12
PROVIDERS: PCP Internal Medicine; Visit Provider Internal Medicine
DX: Z00.00 Encounter for general adult medical examination without abnormal findings (principal)

== ENCOUNTER 2025-09-19 07:21 | Outpatient (REF) | payer OTHER, SELFPAY ==
--- NOTE | ~2025-09-19 | CT_ITS ---
EXAMINATION: CT LUNG SCREENING HISTORY: F17.210 - Nicotine dependence, cigarettes, uncomplicated TECHNIQUE: Low dose axial images were obtained from the sternal notch to upper abdomen without IV contrast per standard departmental protocol. Sagittal and coronal reformatted images were also obtained and reviewed. One or more of the following techniques was used for dose reduction: Automated exposure control, adjustment of the mA and/or kV according to patient size, use of iterative reconstruction technique. DLP: 57 mGy-cm COMPARISON: Comparison is made with the prior examination dated 08/22/2024. FINDINGS: Lung nodules: No pulmonary nodules are identified. Emphysema: mild Coronary Calcification: none Aortic Arch Calcification: mild Potentially Significant Incidentals : none Additional Chest Findings: There is no pleural or pericardial effusion. No mediastinal or axillary lymphadenopathy is identified. Again seen is a mild compression deformity of a midthoracic vertebral body. Visualized upper abdomen: The visualized portions of the liver, spleen, and adrenals have an unremarkable unenhanced appearance. Again seen is a 1.7 cm probable cyst at the upper pole of the left kidney. CT/CT lung screening IMPRESSION: No suspicious pulmonary nodules are identified. LUNG-RADS ASSESSMENT: Lung-RADS 1: Negative MANAGEMENT: Continue annual screening with LDCT in 12 months Category S: N/A Electronically signed by: Voloydmyr Mcneil MD 09/19/2025 07:58 AM [facility]
== END 2025-09-19 07:22 | disposition home or self-care (01) ==
LOC: HO.CT 07:21
PROVIDERS: PCP Internal Medicine; Visit Provider Physician Assistant Medical
DX: F17.210 Nicotine dependence, cigarettes, uncomplicated (principal); Z12.2 Encounter for screening for malignant neoplasm of respiratory organs
CPT/HCPCS: 71271

== ENCOUNTER → 2025-09-19 07:24 | Outpatient (BNV) | payer OTHER, SELFPAY | PROVIDERS: PCP Internal Medicine; Visit Provider Radiology Diagnostic Radiology | DX: Z12.2 Encounter for screening for malignant neoplasm of respiratory organs (principal); Z87.891 Personal history of nicotine dependence | CPT/HCPCS: 71271 ==